=== PATIENT | female | born 1985 ===

== ENCOUNTER 2016-07-06 23:46 | Emergency (ER) | payer BC, MEDICAID ==
[2016-07-06 23:46] VITALS: BMI 23.3
[2016-07-06 23:55] VITALS: TEMP 98
[2016-07-07 00:43] LABS: BASO # 0.1 K/uL (0.0-0.2); BASO % 0.9 % (0.0-2.0); EOS # 0.6 K/uL (0.0-0.7); EOS % 6.8 % (0.0-4.0); LYMPH # 2.6 K/uL (1.0-4.3); LYMPH % 30.9 % (20.0-40.0); MEAN CELL VOLUME 96.4 fl (81.0-99.0); MEAN CORPUSCULAR HGB CONC 33.2 g/dL (33.0-37.0); MEAN PLATELET VOLUME 8.6 fl (7.2-11.7); MONO # 0.6 K/uL (0.0-0.8); MONO % 7.3 % (0.0-10.0); NEUT # 4.6 K/uL (1.8-7.0); NEUT % 54.1 % (50.0-75.0); WHITE BLOOD COUNT 8.5 K/uL (4.8-10.8)
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
[2016-07-07 00:53] LABS: ALCOHOL SERUM 155 mg/dl (0-10); BLOOD UREA NITROGEN 8 mg/dl (7-17); CALCIUM 8.9 mg/dL (8.4-10.2); CARBON DIOXIDE 23 mmol/L (22-30); CHLORIDE 106 mmol/L (98-107); GFR AFRICAN-AMERICAN > 60; GLUCOSE,RANDOM 98 mg/dL (65-105); POTASSIUM 3.6 MMOL/L (3.6-5.0); SODIUM 148 mmol/l (132-148)
[2016-07-07] MEDS ORDERED: Sodium Chloride 0.9% 1,000 ML IV STA ×3 (02:00→04:29)
[2016-07-07 05:30] VITALS: BP 120/62; PULSE 79; RESP 14
[2016-07-07 05:50] LABS: RBC URINE 1 /hpf (0-3); URINE BILIRUBIN NEGATIVE (NEGATIVE); URINE BLOOD NEGATIVE (NEGATIVE); URINE COLOR YELLOW (YELLOW); URINE GLUCOSE (UA) NEG (Normal); URINE KETONE NEGATIVE (NEGATIVE); URINE LEUKOCYTE ESTERASE NEG Leu/uL (Negative); URINE PROTEIN 30 mg/dL (NEGATIVE); URINE UROBILINOGEN 0.2-1.0 mg/dL (0.2-1.0); WBC URINE 3 /hpf (0-5)
[2016-07-07 06:17] VITALS: O2SAT 100
--- NOTE | 2016-07-07 11:23 | CARD ---
APPROVED REPORT EKG Measurement Heart [id number] <Conclusion> Normal sinus rhythm Normal ECG
== END 2016-07-07 06:36 | disposition home or self-care (01) ==
LOC: H.ER 23:46
DX: F10.129 Alcohol abuse with intoxication, unspecified (principal); N18.9 Chronic kidney disease, unspecified
CPT/HCPCS: 80048; 81003; 84702; 85025; 93005; 96360; 96361; 99285; G0480; J7040

== ENCOUNTER 2017-03-02 17:53 | Inpatient (IN) | payer BC ==
[2017-03-02 17:53] VITALS: BMI 23.3
[2017-03-02] MEDS ORDERED: Sodium Chloride 0.9% 1,000 ML IV STA (18:07)
[2017-03-02 18:54] LABS: BASO # 0.1 K/uL (0.0-0.2); BASO % 0.3 % (0.0-2.0); EOS # 0.1 K/uL (0.0-0.7); EOS % 0.5 % (0.0-4.0); LYMPH % 4.5 % (20.0-40.0); MEAN CELL VOLUME 97.7 fl (81.0-99.0); MEAN CORPUSCULAR HEMOGLOBIN 31.5 pg (27.0-31.0); MEAN CORPUSCULAR HGB CONC 32.3 g/dL (33.0-37.0); MEAN PLATELET VOLUME 8.1 fl (7.2-11.7); MONO # 3.4 K/uL (0.0-0.8); MONO % 14.7 % (0.0-10.0); NEUT # 18.4 K/uL (1.8-7.0); PLATELET COUNT 250 K/uL (130-400); RED CELL DISTRIBUTION WIDTH 13.5 % (11.5-14.5)
[2017-03-02 19:09] LABS: RBC URINE 35 /hpf (0-3); URINE BACTERIA OCC (<OCC); URINE BILIRUBIN NEGATIVE (NEGATIVE); URINE BLOOD MODERATE (NEGATIVE); URINE COLOR YELLOW (YELLOW); URINE GLUCOSE (UA) NEG (Normal); URINE KETONE TRACE mg/dL (NEGATIVE); URINE LEUKOCYTE ESTERASE LARGE Leu/uL (Negative); URINE PROTEIN 100 mg/dL (NEGATIVE); URINE UROBILINOGEN 0.2-1.0 mg/dL (0.2-1.0); WBC URINE 826 /hpf (0-5)
[2017-03-02 19:12] LABS: ALB/GLOB RATIO 1.4 (1.0-2.1); ALKALINE PHOSPHATASE 45 U/L (38-126); ALT/SGPT 28 U/L (9-52); AST/SGOT 22 U/L (14-36); BILIRUBIN,TOTAL 0.7 mg/dl (0.2-1.3); BLOOD UREA NITROGEN 8 mg/dl (7-17); CALCIUM 8.9 mg/dL (8.4-10.2); CARBON DIOXIDE 29 mmol/L (22-30); CHLORIDE 101 mmol/L (98-107); GFR AFRICAN-AMERICAN > 60; GLUCOSE,RANDOM 121 mg/dL (65-105); POTASSIUM 4.2 MMOL/L (3.6-5.0); SODIUM 138 mmol/l (132-148); TOTAL PROTEIN 7.7 G/DL (6.3-8.2)
--- NOTE | 2017-03-02 19:16 | ED PDOC ---
HPI: Back Time Seen by Provider: 03/02/17 17:58 Chief Complaint (Nursing): Back Pain Chief Complaint (Provider): Back pain History Per: Patient History/Exam Limitations: no limitations Onset/Duration Of Symptoms: Days (x3) Current Symptoms Are (Timing): Still Present Quality Of Discomfort: "Pain" Pain Scale Rating Of: 10 Previous Symptoms: Back Pain Additional Complaint(s): Madie Wilcox is a 31 year old female, with a past medical history of kidney stones and back problems, who was brought to the emergency department by EMS for severe left flank pain associated with hematuria onset for 3 days. Patient states the pain began intermittently but is now constant. Patient has had kidney stones in the past requiring lithotripsy and reports the pain feels similar. She is currently taking Oxycodone 30 mg for her back pain with no relief. She denies any nausea, vomit, or fever. No further medical complaints. PMD: Tommy Boo Past Medical History Reviewed: Historical Data, Nursing Documentation, Vital Signs Vital Signs: Last Vital Signs Temp 102.5 F H 03/02/17 17:55 Pulse 117 H 03/02/17 17:55 Resp 22 03/02/17 17:55 BP 114/58 L 03/02/17 17:55 Pulse Ox 97 03/02/17 17:55 - Medical History PMH: Anxiety, Asthma, Back Problems, Kidney Stones, Chronic Kidney Disease, Chronic Pain Denies: Diabetes, Hepatitis, HIV, HTN, Seizures, Sexually Transmitted Disease - Surgical History Surgical History: Cholecystectomy - Family History Family History: States: Unknown Family Hx, Hypertension - Social History Current smoker - smoking cessation education provided: No Alcohol: Social Drugs: Denies - Immunization History Hx Tetanus Toxoid Vaccination: No Hx Influenza Vaccination: No Hx Pneumococcal Vaccination: No - Home Medications Home Medications: Ambulatory Orders Medication Instructions Recorded oxyCODONE/Acetaminophen [Percocet 5 mg PO Q8 PRN 05/27/13 5/325 mg Tab] Alprazolam [Xanax] 2 mg PO Q8 PRN 02/07/16 Tizanidine HCl [Zanaflex Capsule] 4 mg PO Q8H 07/07/16 - Allergies Allergies/Adverse Reactions: Allergies Allergy/AdvReac Type Severity Reaction Status Date / Time No Known Allergies Allergy Verified 08/27/15 18:27 Review of Systems ROS Statement: Except As Marked, All Systems Reviewed And Found Negative Constitutional: Negative for: Fever Gastrointestinal: Negative for: Nausea, Vomiting Genitourinary Female: Positive for: Hematuria Musculoskeletal: Positive for: Back Pain (severe left flank) Physical Exam - Reviewed Nursing Documentation Reviewed: Yes Vital Signs Reviewed: Yes - Physical Exam Appears: Positive for: Well, Non-toxic, No Acute Distress Head Exam: Positive for: ATRAUMATIC, NORMAL INSPECTION, NORMOCEPHALIC Skin: Positive for: Normal Color, Warm, Dry Eye Exam: Positive for: EOMI, Normal appearance, PERRL Neck: Positive for: Normal, Painless ROM, Supple Respiratory: Negative for: Respiratory Distress Gastrointestinal/Abdominal: Negative for: Normal Exam (left lower abdominal pain ) Back: Positive for: L CVA Tenderness Extremity: Positive for: Normal ROM Neurologic/Psych: Positive for: Alert, Oriented - Laboratory Results Result Diagrams: 03/02/17 18:49 03/02/17 18:49 - ECG O2 Sat by Pulse Oximetry: 97 (RA) Pulse Ox Interpretation: Normal Medical Decision Making Medical Decision Making: Initial Impression: pyelo vs. nephrolothiasis and hydronephrosis Initial Plan: --Abdomen & Pelvis w/o PO or IV Cont [CT] --Comp Metabolic Panel --Urine --CBC w/ differential ---VBG shock pannel --Toradol 30 mg IVP and 650 mg tab Acetaminophen PO for fever 102.5 F noted in triage --NS IV 1,000 ml @ 125 mls/hr --Urinalysis --reevaluation UA resulted (+) Leuks, nites and blood >800 WBC Lactate:0.9 Blood cultures obtained and sent WBC 23, Rocephin IV started CT: 1. Hyperdensity seen in bilateral medullary pyramids, correlate for dehydration versus changes of early medullary nephrocalcinosis. 2. 3 mm calculus in the left kidney. Punctate right nephrolithiasis. No significant bilateral hydronephrosis. Extrarenal pelvis is seen the left. 3. Moderate amount of free fluid in the pelvis. The remainder of the findings are as described above. Case discussed with ED MD, Dr. Morel. Admission advised at this time. Dr. Connors is Pt's PMD. Dr. Menjivar contacted and arrangements made for admission ~ Scribe Attestation: Documented by Prem Conn, acting as a scribe for Mahogany Danielle PA-C. Provider Scribe Attestation: All medical record entries made by the Scribe were at my direction and personally dictated by me. I have reviewed the chart and agree that the record accurately reflects my personal performance of the history, physical exam, medical decision making, and the department course for this patient. I have also personally directed, reviewed, and agree with the discharge instructions and disposition. Disposition - Clinical Impression Clinical Impression: Pyelonephritis - Patient ED Disposition Is Patient to be Admitted: Yes - Disposition Disposition Time: 20:27 Condition: STABLE - POA Present On Arrival: None
[2017-03-02] MEDS ORDERED: cefTRIAXone IV 1 gm in Dextros 50 ML IVPB STA ×2 (19:32→20:25)
[2017-03-02] MEDS ORDERED: cefTRIAXone IV 1 gm in Dextros 50 ML IVPB ONE ×2 (19:39→20:27)
[2017-03-02 20:05] LABS: LARGE PLATELETS PRESENT; NEUTROPHIL 78 % (42-75); TOTAL CELLS COUNTED 100
[2017-03-02 20:05] LABS: VENOUS BLOOD GAS BASE EXCESS 2.8 mmol/L (0.0-2.0); VENOUS BLOOD GAS PCO2 40 mmHg (40-60); VENOUS BLOOD PH 7.44 (7.32-7.43)
[2017-03-03] MEDS: Sodium Chloride 0.9% 1,000 ML IV SCH ×3 (07:15→21:47)
[2017-03-03 07:39] LABS: BASO # 0.1 K/uL (0.0-0.2); BASO % 0.3 % (0.0-2.0); EOS % 0.2 % (0.0-4.0); HEMATOCRIT 39.4 % (34.0-47.0); LYMPH # 0.9 K/uL (1.0-4.3); LYMPH % 3.8 % (20.0-40.0); MEAN CELL VOLUME 97.4 fl (81.0-99.0); MEAN CORPUSCULAR HEMOGLOBIN 32.1 pg (27.0-31.0); MEAN CORPUSCULAR HGB CONC 32.9 g/dL (33.0-37.0); MEAN PLATELET VOLUME 8.6 fl (7.2-11.7); MONO # 3.7 K/uL (0.0-0.8); MONO % 14.9 % (0.0-10.0); NEUT # 19.9 K/uL (1.8-7.0); NEUT % 80.8 % (50.0-75.0); RED CELL DISTRIBUTION WIDTH 13.4 % (11.5-14.5); WHITE BLOOD COUNT 24.6 K/uL (4.8-10.8)
--- NOTE | 2017-03-03 09:14 | CT ---
PROCEDURE: CT Abdomen and Pelvis without intravenous contrast HISTORY: left renal colic COMPARISON: 08/28/2015. TECHNIQUE: Technique. Contrast Dose: Radiation dose: Total exam DLP = mGy-cm. This CT exam was performed using one or more of the following dose reduction techniques: Automated exposure control, adjustment of the mA and/or kV according to patient size, and/or use of iterative reconstruction technique. FINDINGS: LOWER THORAX: Unremarkable. LIVER: Unremarkable. No gross lesion or ductal dilatation. GALLBLADDER AND BILE DUCTS: Unremarkable. PANCREAS: Unremarkable. No gross lesion or ductal dilatation. SPLEEN: Unremarkable. ADRENALS: Unremarkable. No mass. KIDNEYS AND URETERS: Minimal bilateral medullary calcinosis. Punctate 2 millimeter nonobstructive calculus in the upper pole left kidney. Dilated left extrarenal pelvis. No obstructive renal calculus. No hydronephrosis. No solid mass. VASCULATURE: Unremarkable. No aortic aneurysm. BOWEL: Unremarkable. No obstruction. No gross mural thickening. APPENDIX: Unremarkable. Normal appendix. PERITONEUM: Unremarkable. No free fluid. No free air. LYMPH NODES: Unremarkable. No enlarged lymph nodes. BLADDER: Unremarkable. REPRODUCTIVE: Unremarkable. BONES: No acute fracture. OTHER FINDINGS: Small amount of free fluid in the pelvis. IMPRESSION: Minimal bilateral medullary calcinosis. Punctate 2 millimeter nonobstructive calculus in the upper pole left kidney. Dilated left extrarenal pelvis, unchanged from prior exam. No obstructive renal calculus.
[2017-03-03 09:21] LABS: ALB/GLOB RATIO 1.2 (1.0-2.1); ALKALINE PHOSPHATASE 44 U/L (38-126); ALT/SGPT 27 U/L (9-52); AST/SGOT 19 U/L (14-36); BILIRUBIN,TOTAL 0.5 mg/dl (0.2-1.3); BLOOD UREA NITROGEN 9 mg/dl (7-17); CALCIUM 8.1 mg/dL (8.4-10.2); CARBON DIOXIDE 26 mmol/L (22-30); CHLORIDE 105 mmol/L (98-107); CHOLESTEROL 148 mg/dL (0-199); GFR AFRICAN-AMERICAN > 60; GLUCOSE,RANDOM 124 mg/dL (65-105); POTASSIUM 3.6 MMOL/L (3.6-5.0); SODIUM 138 mmol/l (132-148); TOTAL PROTEIN 6.5 G/DL (6.3-8.2)
[2017-03-03] MEDS: Enoxaparin 40 mg Syringe SC SCH (09:22)
[2017-03-03] MEDS: cefTRIAXone 2 GM in Sodium Chloride 0.9% 100 ML IVPB SCH (09:23)
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
[2017-03-04] MEDS: Sodium Chloride 0.9% 1,000 ML IV SCH (00:25)
[2017-03-04 08:42] LABS: HEMATOCRIT 35.6 % (34.0-47.0); MEAN CELL VOLUME 96.5 fl (81.0-99.0); MEAN CORPUSCULAR HEMOGLOBIN 32.2 pg (27.0-31.0); MEAN CORPUSCULAR HGB CONC 33.3 g/dL (33.0-37.0); RED CELL DISTRIBUTION WIDTH 13.4 % (11.5-14.5); WHITE BLOOD COUNT 17.2 K/uL (4.8-10.8)
[2017-03-04 09:13] LABS: ALB/GLOB RATIO 1.1 (1.0-2.1); ALKALINE PHOSPHATASE 49 U/L (38-126); ALT/SGPT 30 U/L (9-52); AST/SGOT 16 U/L (14-36); BILIRUBIN,TOTAL 0.3 mg/dl (0.2-1.3); BLOOD UREA NITROGEN 3 mg/dl (7-17); CARBON DIOXIDE 25 mmol/L (22-30); CHLORIDE 108 mmol/L (98-107); GFR AFRICAN-AMERICAN > 60; GLUCOSE,RANDOM 104 mg/dL (65-105); POTASSIUM 3.6 MMOL/L (3.6-5.0); SODIUM 139 mmol/l (132-148); TOTAL PROTEIN 6.2 G/DL (6.3-8.2)
[2017-03-04] MEDS: Enoxaparin 40 mg Syringe SC SCH (09:22)
[2017-03-04] MEDS: cefTRIAXone 2 GM in Sodium Chloride 0.9% 100 ML IVPB SCH (09:22)
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
[2017-03-04] MEDS: Morphine 30 mg SR Tab PO SCH (20:49)
[2017-03-05] MEDS: Morphine 30 mg SR Tab PO SCH ×2 (08:55→21:28)
[2017-03-05] MEDS: Enoxaparin 40 mg Syringe SC SCH (08:57)
[2017-03-05] MEDS: cefTRIAXone 2 GM in Sodium Chloride 0.9% 100 ML IVPB SCH (09:28)
--- NOTE | 2017-03-05 10:48 | CP.PCM.PN ---
Subjective - Date & Time of Evaluation Date of Evaluation: 03/05/17 Time of Evaluation: 10:46 - Subjective Subjective: urology consult on chart. Cont iv antibiotics and add an NSAID for sympton relief Objective - Vital Signs/Intake and Output Vital Signs (last 24 hours): Temp Pulse Resp BP Pulse Ox 97.8 F 71 20 106/67 98 03/05/17 08:12 03/05/17 08:12 03/05/17 08:12 03/05/17 08:12 03/05/17 08:12 - Medications Medications: Current Medications Acetaminophen (Tylenol 325mg Tab) 650 mg PO Q6 PRN PRN Reason: Fever >100.4 F Last Admin: 03/03/17 15:28 Dose: 650 mg Alprazolam (Xanax) 1 mg PO Q8 PRN PRN Reason: Anxiety Last Admin: 03/05/17 08:13 Dose: 1 mg Enoxaparin Sodium (Lovenox) 40 mg SC DAILY CHANTEL PRN Reason: Protocol Last Admin: 03/05/17 08:57 Dose: 40 mg Hydromorphone HCl (Dilaudid) 2 mg IVP Q3 PRN PRN Reason: Pain, severe (8-10) Last Admin: 03/05/17 09:41 Dose: 2 mg Ceftriaxone Sodium 2 gm/ (Sodium Chloride) 100 mls @ 100 mls/hr IVPB DAILY CHANTEL PRN Reason: Protocol Last Admin: 03/05/17 09:28 Dose: 100 mls/hr Ketorolac Tromethamine (Toradol) 30 mg IVP Q6 PRN PRN Reason: Pain, moderate (4-7) Last Admin: 03/05/17 05:31 Dose: 30 mg Morphine Sulfate (Morphine Extended Release Tab) 30 mg PO Q12 CHANTEL Last Admin: 03/05/17 08:55 Dose: 30 mg Ondansetron HCl (Zofran Inj) 4 mg IVP Q6 PRN PRN Reason: Nausea/Vomiting Last Admin: 03/04/17 17:06 Dose: 4 mg - Labs Labs: 03/04/17 05:45 03/04/17 05:45
--- NOTE | 2017-03-05 12:08 | PN ---
DATE: 03/04/2017 The patient was seen and examined yesterday. At that time, a note was not dictated. SUBJECTIVE: The patient was seen and examined. Interim events noted. The patient feels okay. Denies any specific complaint. No chest pain. No shortness of breath. Joint pain is still present, but improving. Urinary symptoms are also resolving. PHYSICAL EXAMINATION: GENERAL: The patient is in no acute distress. VITAL SIGNS: Stable. HEART: S1 and S2, normal and regular. LUNGS: Good bilateral air exchange. ABDOMEN: Soft, nontender. CVA tenderness is still present, but has been less. No sign of acute abdomen. No guarding. No rigidity. No rebound. Bowel sounds are plus and normal. EXTREMITIES: No edema. No calf swelling. No tenderness. No acute ischemia. CENTRAL NERVOUS SYSTEM: Essentially unchanged. DIAGNOSTIC DATA: Available diagnostic data reviewed. ASSESSMENT AND PLAN: Overall, the patient's general medical condition is stable and improving. Plan as ordered. Lele Menjivar MD
[2017-03-05] MEDS: Sodium Chloride 0.9% 1,000 ML IV SCH ×2 (13:30→23:32)
--- NOTE | 2017-03-05 13:41 | PN ---
DATE: 03/05/2017 SUBJECTIVE: The patient is seen and examined. Interim events noted. Consults noted and appreciated. Pain Management intervention noted and appreciated. The patient remains in regular medical floor. Complains of pain of chronic nature this is improving. Still has burning urination and some blood in the urine. No chest pain. No shortness of breath. PHYSICAL EXAMINATION: GENERAL: The patient is in no acute distress. VITAL SIGNS: Stable. HEART: S1 and S2, normal and regular. LUNGS: Good bilateral air entry. ABDOMEN: Soft, nontender. No costovertebral tenderness. No sign of acute abdomen. No guarding. No rigidity. No rebound. Bowel sounds are present and normal. EXTREMITIES: No edema. No calf swelling. No tenderness. No acute ischemia. CENTRAL NERVOUS SYSTEM: Essentially unchanged. DIAGNOSTIC DATA: Available diagnostic data reviewed. ASSESSMENT AND PLAN: Overall, the patient's general medical condition is slowly improving. Still has hematuria and urinary tract infection symptoms. Plan as ordered. Lele Menjivar MD
--- NOTE | 2017-03-06 00:59 | CON ---
DATE OF CONSULTATION: 03/05/2017 HISTORY OF PRESENT ILLNESS: This is a 31-year-old female, who I was called to evaluate because of the present diagnosis of acute pyelonephritis. This patient has a significant history of having had renal calculus disease in the past. Once in passage of a stone, she developed pyelonephritis, needed to be hospitalized for a week with IV antibiotics. The patient recently has been fine, but at this time, she developed flank pain mostly on the left side, dysuria, came through the emergency room, white count was above 25, 000, urine was positive for nitrites and leukocytes. Patient had a urine culture done upon admission that was reported back as significant growth of E. coli. She was placed on Zosyn initially. When she was seen this morning, the patient still has some residual flank pain, mostly geared towards the left and the white count is now 17,000 as of this morning. The patient had a CT scan done upon admission where there was noted to be a mildly dilated extrarenal pelvis on the left side with a 2-mm non-obstructing stone noted in the upper pole of the kidney on that same side; the right side was unremarkable. PHYSICAL EXAMINATION: The patient has some abdominal tenderness in the left and right upper quadrants as well as flank pain on both sides. The lower abdomen is fine. ASSESSMENT AND PLAN: We told the patient that urologically, there is no need for intervention at this time. She could benefit from oral nonsteroidal antiinflammatory drugs to help with the discomfort created by the pyelonephritis and other than that, once she is well controlled and the white count normalizes, then she should be transitioned to a p.o. antibiotic for 10 days to 2 weeks to ensure no recurrence of disease. Trent Maya MD
[2017-03-06 01:49] LABS: RBC URINE 4 /hpf (0-3); URINE BACTERIA OCC (<OCC); URINE BILIRUBIN NEGATIVE (NEGATIVE); URINE COLOR YELLOW (YELLOW); URINE GLUCOSE (UA) NEG (Normal); URINE KETONE 20 mg/dL (NEGATIVE); URINE PROTEIN NEGATIVE (NEGATIVE); URINE UROBILINOGEN 0.2-1.0 mg/dL (0.2-1.0); WBC URINE 13 /hpf (0-5)
[2017-03-06 01:53] LABS: URINE BLOOD SMALL (NEGATIVE); URINE LEUKOCYTE ESTERASE SMALL Leu/uL (Negative)
[2017-03-06] MEDS: Sodium Chloride 0.9% 1,000 ML IV SCH ×2 (03:44→11:42)
[2017-03-06 06:22] LABS: HEMATOCRIT 33.4 % (34.0-47.0); MEAN CELL VOLUME 95.8 fl (81.0-99.0); MEAN CORPUSCULAR HEMOGLOBIN 32.9 pg (27.0-31.0); MEAN CORPUSCULAR HGB CONC 34.3 g/dL (33.0-37.0); RED CELL DISTRIBUTION WIDTH 13.1 % (11.5-14.5); WHITE BLOOD COUNT 9.5 K/uL (4.8-10.8)
[2017-03-06 06:39] LABS: ALKALINE PHOSPHATASE 67 U/L (38-126); ALT/SGPT 54 U/L (9-52); AST/SGOT 48 U/L (14-36); BILIRUBIN,TOTAL 0.2 mg/dl (0.2-1.3); BLOOD UREA NITROGEN 3 mg/dl (7-17); CALCIUM 7.8 mg/dL (8.4-10.2); CARBON DIOXIDE 27 mmol/L (22-30); CHLORIDE 106 mmol/L (98-107); GFR AFRICAN-AMERICAN > 60; GLUCOSE,RANDOM 98 mg/dL (65-105); POTASSIUM 3.3 MMOL/L (3.6-5.0); SODIUM 139 mmol/l (132-148); TOTAL PROTEIN 5.9 G/DL (6.3-8.2)
[2017-03-06] MEDS: Enoxaparin 40 mg Syringe SC SCH (09:11)
[2017-03-06] MEDS: cefTRIAXone 2 GM in Sodium Chloride 0.9% 100 ML IVPB SCH (09:16)
[2017-03-06] MEDS: Morphine 30 mg SR Tab PO SCH ×2 (09:18→21:05)
[2017-03-06] MEDS ORDERED: Potassium Chloride 20 mEq ER Tab PO ONE (11:51)
--- NOTE | 2017-03-06 13:41 | CP.PCM.PN ---
Subjective - Date & Time of Evaluation Date of Evaluation: 03/06/17 Time of Evaluation: 13:22 - Subjective Subjective: Patient seen and examined with Dr. Menjivar Patient reports worsening abdominal pain and dysuria today. It is possible stone is passing. Chronic pain managed with PO medications, currently on dilaudid 2mg q3. patient requesting more pain medication to be able to ambulate. Will start toradol scheduled q6 hrs to improve pain control. IF not controlled can call pain management to reassess her pain regimen. Patient appears uncomfortable but pleasant. Speech is clear. No appetite, food tray seen. Food untouched. Continue with IVF . Objective - Vital Signs/Intake and Output Vital Signs (last 24 hours): Temp Pulse Resp BP Pulse Ox 98 F 86 20 100/66 99 03/06/17 08:00 03/06/17 08:00 03/06/17 08:00 03/06/17 08:00 03/06/17 08:00 - Medications Medications: Current Medications Acetaminophen (Tylenol 325mg Tab) 650 mg PO Q6 PRN PRN Reason: Fever >100.4 F Last Admin: 03/03/17 15:28 Dose: 650 mg Alprazolam (Xanax) 1 mg PO Q8 PRN PRN Reason: Anxiety Last Admin: 03/06/17 04:40 Dose: 1 mg Docusate Sodium (Colace) 100 mg PO BID [facility] Last Admin: 03/06/17 09:10 Dose: 100 mg Hydromorphone HCl (Dilaudid) 2 mg IVP Q3 PRN PRN Reason: Pain, severe (8-10) Last Admin: 03/06/17 13:07 Dose: 2 mg Ceftriaxone Sodium 2 gm/ (Sodium Chloride) 100 mls @ 100 mls/hr IVPB DAILY [facility] PRN Reason: Protocol Last Admin: 03/06/17 09:16 Dose: 100 mls/hr Ketorolac Tromethamine (Toradol) 15 mg IVP Q6 [facility] Morphine Sulfate (Morphine Extended Release Tab) 30 mg PO Q12 [facility] Last Admin: 03/06/17 09:18 Dose: 30 mg Ondansetron HCl (Zofran Inj) 4 mg IVP Q6 PRN PRN Reason: Nausea/Vomiting Last Admin: 03/05/17 23:38 Dose: 4 mg Pantoprazole Sodium (Protonix Ec Tab) 40 mg PO DAILY [facility] Phenazopyridine HCl (Pyridium) 100 mg PO TID [facility] Last Admin: 03/06/17 13:05 Dose: 100 mg - Labs Labs: 03/06/17 05:30 03/06/17 05:30 - Constitutional Appears: Non-toxic (appears uncomfortable) - Head Exam Head Exam: ATRAUMATIC, NORMAL INSPECTION, NORMOCEPHALIC - Eye Exam Eye Exam: EOMI, Normal appearance, PERRL - ENT Exam ENT Exam: Mucous Membranes Moist - Neck Exam Neck Exam: Full ROM - Respiratory Exam Respiratory Exam: NORMAL BREATHING PATTERN - Cardiovascular Exam Cardiovascular Exam: REGULAR RHYTHM, +S1, +S2 - GI/Abdominal Exam GI & Abdominal Exam: Soft, Tenderness (left sided ). absent: Distended - Rectal Exam Rectal Exam: Deferred - Neurological Exam Neurological Exam: Alert, Awake, CN II-XII Intact, Normal Gait, Oriented x3 - Psychiatric Exam Psychiatric exam: Normal Affect, Normal Mood - Skin Skin Exam: Dry, Intact, Normal Color, Warm Assessment and Plan (1) Pyelonephritis Assessment & Plan: 31 year old female admitted for pyelonephritis, hx of chronic pain. Leukocytosis has resolved. Urine Culture + E. Coli, sensitive to Rocephin. Continue with IV antibiotics and IVF, LR at 150cc/hr Patient has no appetite. Stone may be passing contributing to patients increased pain Toradol scheduled for improved pain control. reconsult pain management if no improvement. DVT PPX SCDs lovenox in am case d/w Dr. Menjivar Status: Acute (2) Chronic pain Status: Chronic
[2017-03-06] MEDS ORDERED: Lactated Ringer's 1,000 ML IV SCH (14:15)
[2017-03-06] MEDS: Lactated Ringer's 1,000 ML IV SCH ×2 (15:02→21:55)
[2017-03-07 00:55] VITALS: RESP 20
[2017-03-07] MEDS: Lactated Ringer's 1,000 ML IV SCH (04:12)
[2017-03-07 06:50] LABS: HEMATOCRIT 32.9 % (34.0-47.0); MEAN CELL VOLUME 95.9 fl (81.0-99.0); MEAN CORPUSCULAR HGB CONC 34.4 g/dL (33.0-37.0); RED CELL DISTRIBUTION WIDTH 12.9 % (11.5-14.5); WHITE BLOOD COUNT 7.5 K/uL (4.8-10.8)
[2017-03-07 07:27] LABS: BLOOD UREA NITROGEN 5 mg/dl (7-17); CARBON DIOXIDE 28 mmol/L (22-30); CHLORIDE 106 mmol/L (98-107); GFR AFRICAN-AMERICAN > 60; GLUCOSE,RANDOM 95 mg/dL (65-105); POTASSIUM 3.4 MMOL/L (3.6-5.0); SODIUM 140 mmol/l (132-148)
--- NOTE | 2017-03-07 08:09 | CP.PCM.DIS ---
Provider - Provider Date of Admission: 03/02/17 20:05 Attending physician: Lele Menjivar MD Consults: Urology: Zachary Anesthesiology: Dr. Michel Time Spent in preparation of Discharge (in minutes): 35 Diagnosis - Discharge Diagnosis (1) Pyelonephritis Status: Acute Comment: pain controlled. treated with IV rocephin. d.c on cipro for 10 days (2) Chronic pain Status: Chronic Comment: resume home pain regimen. follow up with outpatient pain management; Dr. Srinivasan [facility] Course - Lab Results Lab Results: Micro Results 03/02/17 20:00 Blood-Venous Blood Culture - Preliminary NO GROWTH AFTER 4 DAYS 03/02/17 19:45 Blood-Venous Blood Culture - Preliminary NO GROWTH AFTER 4 DAYS 03/02/17 20:55 Urine,Clean Catch Urine Culture - Final Escherichia Coli Most Recent Lab Values WBC 7.5 K/uL (4.8-10.8) 03/07/17 05:15 RBC 3.43 Mil/uL (3.80-5.20) L 03/07/17 05:15 Hgb 11.3 g/dL (12.0-16.0) L 03/07/17 05:15 Hct 32.9 % (34.0-47.0) L 03/07/17 05:15 MCV 95.9 fl (81.0-99.0) 03/07/17 05:15 MCH 33.0 pg (27.0-31.0) H 03/07/17 05:15 MCHC 34.4 g/dL (33.0-37.0) 03/07/17 05:15 RDW 12.9 % (11.5-14.5) 03/07/17 05:15 Plt Count 255 K/uL (130-400) 03/07/17 05:15 MPV 8.6 fl (7.2-11.7) 03/03/17 05:30 Neut % (Auto) 80.8 % (50.0-75.0) H 03/03/17 05:30 Lymph % (Auto) 3.8 % (20.0-40.0) L 03/03/17 05:30 Cross % (Auto) 14.9 % (0.0-10.0) H 03/03/17 05:30 Eos % (Auto) 0.2 % (0.0-4.0) 03/03/17 05:30 Baso % (Auto) 0.3 % (0.0-2.0) 03/03/17 05:30 Neut # 19.9 K/uL (1.8-7.0) H 03/03/17 05:30 Lymph # 0.9 K/uL (1.0-4.3) L 03/03/17 05:30 Cross # 3.7 K/uL (0.0-0.8) H 03/03/17 05:30 Eos # 0.0 K/uL (0.0-0.7) 03/03/17 05:30 Baso # 0.1 K/uL (0.0-0.2) 03/03/17 05:30 Neutrophils % (Manual) 78 % (42-75) H 03/02/17 18:49 Band Neutrophils % 1 % (0-2) 03/02/17 18:49 Lymphocytes % (Manual) 7 % (20-50) L 03/02/17 18:49 Monocytes % (Manual) 14 % (0-10) H 03/02/17 18:49 Platelet Estimate Normal (NORMAL) 03/02/17 18:49 Large Platelets Present 03/02/17 18:49 pO2 34 mm/Hg (30-55) 03/02/17 19:57 VBG pH 7.44 (7.32-7.43) H 03/02/17 19:57 VBG pCO2 40 mmHg (40-60) 03/02/17 19:57 VBG HCO3 26.3 mmol/L 03/02/17 19:57 VBG Total CO2 28.4 mmol/L (22-28) H 03/02/17 19:57 VBG O2 Sat (Calc) 74.8 % (40-65) H 03/02/17 19:57 VBG Base Excess 2.8 mmol/L (0.0-2.0) H 03/02/17 19:57 VBG Potassium 3.8 mmol/L (3.6-5.2) 03/02/17 19:57 Sodium 136.0 mmol/L (132-148) 03/02/17 19:57 Chloride 103.0 mmol/L (98-107) 03/02/17 19:57 Glucose 121 mg/dL (65-105) H 03/02/17 19:57 Lactate 0.9 mmol/L (0.7-2.1) 03/02/17 19:57 FiO2 21.0 % 03/02/17 19:57 Sodium 140 mmol/l (132-148) 03/07/17 05:15 Potassium 3.4 MMOL/L (3.6-5.0) L 03/07/17 05:15 Chloride 106 mmol/L (98-107) 03/07/17 05:15 Carbon Dioxide 28 mmol/L (22-30) 03/07/17 05:15 Anion Gap 9 (10-20) L 03/07/17 05:15 BUN 5 mg/dl (7-17) L 03/07/17 05:15 Creatinine 0.5 mg/dl (0.7-1.2) L 03/07/17 05:15 Est GFR ( Amer) > 60 03/07/17 05:15 Est GFR (Non-Af Amer) > 60 03/07/17 05:15 Random Glucose 95 mg/dL (65-105) 03/07/17 05:15 Calcium 8.0 mg/dL (8.4-10.2) L 03/07/17 05:15 Total Bilirubin 0.2 mg/dl (0.2-1.3) 03/06/17 05:30 AST 48 U/L (14-36) H D 03/06/17 05:30 ALT 54 U/L (9-52) H D 03/06/17 05:30 Alkaline Phosphatase 67 U/L (38-126) 03/06/17 05:30 Total Protein 5.9 G/DL (6.3-8.2) L 03/06/17 05:30 Albumin 3.0 g/dL (3.5-5.0) L 03/06/17 05:30 Globulin 2.9 gm/dL (2.2-3.9) 03/06/17 05:30 Albumin/Globulin Ratio 1.0 (1.0-2.1) 03/06/17 05:30 Triglycerides 73 mg/DL (0-149) 03/03/17 05:30 Cholesterol 148 mg/dL (0-199) 03/03/17 05:30 LDL Cholesterol Direct 60 mg/dL (0-129) 03/03/17 05:30 HDL Cholesterol 54 MG/DL (30-70) 03/03/17 05:30 Vitamin B12 430 pg/mL (239-931) 03/03/17 05:30 Venous Blood Potassium 3.8 mmol/L (3.6-5.2) 03/02/17 19:57 Urine Color Yellow (YELLOW) 03/06/17 01:38 Urine Clarity Slighty-cloudy (Clear) 03/06/17 01:38 Urine pH 6.0 (5.0-8.0) 03/06/17 01:38 Ur Specific [employer] 1.013 (1.003-1.030) 03/06/17 01:38 Urine Protein Negative mg/dL (NEGATIVE) 03/06/17 01:38 Urine Glucose (UA) Neg mg/dL (Normal) 03/06/17 01:38 Urine Ketones 20 mg/dL (NEGATIVE) 03/06/17 01:38 Urine Blood Small (NEGATIVE) 03/06/17 01:38 Urine Nitrate Negative (NEGATIVE) 03/06/17 01:38 Urine Bilirubin Negative (NEGATIVE) 03/06/17 01:38 Urine Urobilinogen 0.2-1.0 mg/dL (0.2-1.0) 03/06/17 01:38 Ur Leukocyte Esterase Small Jimmy/uL (Negative) 03/06/17 01:38 Urine RBC (Auto) 4 /hpf (0-3) H 03/06/17 01:38 Urine Microscopic WBC 13 /hpf (0-5) H 03/06/17 01:38 Ur Squamous Epith Cells 1 /hpf (0-5) 03/06/17 01:38 Amorphous Sediment Occ /ul (<OCC) H 03/02/17 18:49 Urine Bacteria Occ (<OCC) H 03/06/17 01:38 Urine Opiates Screen Positive (NEGATIVE) H 03/03/17 07:45 Urine Methadone Screen Negative (NEGATIVE) 03/03/17 07:45 Ur Barbiturates Screen Negative (NEGATIVE) 03/03/17 07:45 Ur Phencyclidine Scrn Negative (NEGATIVE) 03/03/17 07:45 Ur Amphetamines Screen Negative (NEGATIVE) 03/03/17 07:45 U Benzodiazepines Scrn Positive (NEGATIVE) 03/03/17 07:45 U Oth Cocaine Metabols Negative (NEGATIVE) 03/03/17 07:45 U Cannabinoids Screen Negative (NEGATIVE) 03/03/17 07:45 - Hospital Course Hospital Course: 31 year old female admitted for pyelonephritis. Treated with IV rocephin. Cultures positive for e.coli. Will d/c on 10 days of PO ciprofloxacin. Chronic pain managed by Dr. Srinivasan. Can resume ms contin and roxicodone. She can take Ibuprofen PRN in addition to this. - Date & Time of H&P Date of H&P: 03/03/17 Time of H&P: 07:46 Discharge Exam - Head Exam Head Exam: ATRAUMATIC, NORMAL INSPECTION, NORMOCEPHALIC - Eye Exam Eye Exam: EOMI, Normal appearance, PERRL - Respiratory Exam Respiratory Exam: Clear to PA & Lateral, NORMAL BREATHING PATTERN, UNREMARKABLE - Cardiovascular Exam Cardiovascular Exam: REGULAR RHYTHM, +S1, +S2. absent: Bradycardia, Tachycardia - GI/Abdominal Exam GI & Abdominal Exam: Soft. absent: Distended, Tenderness - Neurological Exam Neurological exam: Alert, CN II-XII Intact, Normal Gait, Oriented x3, Reflexes Normal - Psychiatric Exam Psychiatric exam: Normal Affect, Normal Mood - Skin Skin Exam: Dry, Intact, Normal Color, Warm Discharge Plan - Discharge Medications Prescriptions: Ciprofloxacin [Cipro] 500 mg PO BID #20 tab - Follow Up Plan Condition: STABLE Disposition: HOME/ ROUTINE Instructions: Acute Pyelonephritis (DC) Additional Instructions: Complete all antibiotics. Follow up with primary MD in 1 week Referrals: Lele Menjivar MD [Staff Provider] - Lux Sharma Jr., MD [Staff Provider] - Darion Michel MD [Staff Provider] -
[2017-03-07] MEDS ORDERED: Enoxaparin 40 mg Syringe SC SCH (09:00)
[2017-03-07] MEDS ORDERED: Potassium Chloride 20 mEq ER Tab PO ONE (09:00)
[2017-03-07] MEDS ORDERED: Pantoprazole 40 mg EC Tab PO SCH (09:00)
[2017-03-07] MEDS: Morphine 30 mg SR Tab PO SCH (09:04)
[2017-03-07] MEDS: cefTRIAXone 2 GM in Sodium Chloride 0.9% 100 ML IVPB SCH (09:07)
[2017-03-07 09:08] VITALS: BP 128/82; PULSE 67; TEMP 97.3; O2SAT 96
== END 2017-03-07 13:00 | disposition home or self-care (01) | DRG 690 ==
LOC: H.ER 17:53 → H.ERHOLD 20:05 → H.MEDSURG1 21:02
PROVIDERS: ADMIT Internal Medicine; ATTEND Internal Medicine
DX: N10 Acute pyelonephritis (principal); B96.20 Unspecified Escherichia coli [E. coli] as the cause of diseases classified elsewhere; G89.29 Other chronic pain; J45.909 Unspecified asthma, uncomplicated; Z87.442 Personal history of urinary calculi; Z90.49 Acquired absence of other specified parts of digestive tract; Z80.3 Family history of malignant neoplasm of breast; Z82.49 Family history of ischemic heart disease and other diseases of the circulatory system

== ENCOUNTER 2017-08-14 13:21 | Inpatient (IN) | payer BC ==
[2017-08-14 13:21] VITALS: BMI 23.3
[2017-08-14 15:04] LABS: BASO # 0.1 K/uL (0.0-0.2); BASO % 0.5 % (0.0-2.0); EOS # 0.1 K/uL (0.0-0.7); EOS % 1.1 % (0.0-4.0); HEMOGLOBIN 13.7 g/dL (12.0-16.0); LYMPH # 1.7 K/uL (1.0-4.3); LYMPH % 13.5 % (20.0-40.0); MEAN CELL VOLUME 93.9 fl (81.0-99.0); MEAN CORPUSCULAR HEMOGLOBIN 32.2 pg (27.0-31.0); MEAN CORPUSCULAR HGB CONC 34.3 g/dL (33.0-37.0); MEAN PLATELET VOLUME 8.8 fl (7.2-11.7); MONO # 1.5 K/uL (0.0-0.8); NEUT # 9.1 K/uL (1.8-7.0); NEUT % 72.9 % (50.0-75.0); NRBC % 0.1 % (0.0-0.0); RBC 4.23 Mil/uL (3.80-5.20); RED CELL DISTRIBUTION WIDTH 13.7 % (11.5-14.5); WHITE BLOOD COUNT 12.5 K/uL (4.8-10.8)
[2017-08-14 15:11] LABS: VENOUS BLOOD GAS BASE EXCESS 3.1 mmol/L (0.0-2.0); VENOUS BLOOD GAS PCO2 38 mmHg (40-60); VENOUS BLOOD GAS PO2 50 mm/Hg (30-55); VENOUS BLOOD PH 7.46 (7.32-7.43)
[2017-08-14 15:14] LABS: BLOOD UREA NITROGEN 8 mg/dl (7-17); GFR AFRICAN-AMERICAN > 60; GFR NON-AFRICAN AMERICAN > 60
--- NOTE | 2017-08-14 15:58 | ED PDOC ---
Upper Extremity Pain/Injury Time Seen by Provider: 08/14/17 13:49 Chief Complaint (Nursing): Headache Chief Complaint (Provider): Headache, Bilat arm redness History Per: Patient History/Exam Limitations: no limitations Onset/Duration Of Symptoms: Days (x4) Current Symptoms Are (Timing): Still Present Additional Complaint(s): 31 year old female, with a history of chronic neck and back pain, presents to the emergency department complaining of fever, body aches, chills, headache, and bilateral arm pain / redness / swelling in her cubital area, onset four days ago. Also, the patient noted left hand swelling. She states that her symptoms came one at a time and subsided but came back. Denies chest pain, vomiting, and diarrhea. As for her chronic neck and back pain, she reports taking morphine and percocet. PMD: Tommy Boo Past Medical History Reviewed: Historical Data, Nursing Documentation, Vital Signs Vital Signs: Last Vital Signs Temp 99 F 08/14/17 13:33 Pulse 111 H 08/14/17 13:33 Resp 18 08/14/17 13:33 BP 111/77 08/14/17 13:33 Pulse Ox 100 08/14/17 13:33 - Medical History PMH: Anxiety, Asthma, Back Problems, Kidney Stones, Chronic Kidney Disease ( kidney stones), Chronic Pain Denies: Diabetes, Hepatitis, HIV, HTN, Seizures, Sexually Transmitted Disease - Surgical History Surgical History: Cholecystectomy - Family History Family History: States: Hypertension - Social History Alcohol: None Drugs: Denies - Immunization History Hx Tetanus Toxoid Vaccination: No Hx Influenza Vaccination: No Hx Pneumococcal Vaccination: No - Home Medications Home Medications: Ambulatory Orders Medication Instructions Recorded ALPRAZolam [Xanax] 1 tab PO TID 08/14/17 Meloxicam [Mobic] 1 tab PO BID 08/14/17 Morphine Sulfate [Arymo ER] 15 mg PO BID 08/14/17 Potassium Gluconate [Potassium] 100 mg PO DAILY 08/14/17 oxyCODONE [oxyCODONE Immediate 1 tab PO QID 08/14/17 Release Tab] tiZANidine [Zanaflex] 4 mg PO BID 08/14/17 - Allergies Allergies/Adverse Reactions: Allergies Allergy/AdvReac Type Severity Reaction Status Date / Time No Known Allergies Allergy Verified 08/14/17 13:33 Review of Systems ROS Statement: Except As Marked, All Systems Reviewed And Found Negative Constitutional: Positive for: Fever, Chills, Other (body aches) Cardiovascular: Negative for: Chest Pain Gastrointestinal: Negative for: Vomiting, Diarrhea Musculoskeletal: Positive for: Arm Pain (bilateral cubital areas), Hand Pain ( left, accompanied by swelling), Other (redness of bilateral cubital areas) Neurological: Positive for: Headache Physical Exam - Reviewed Nursing Documentation Reviewed: Yes Vital Signs Reviewed: Yes - Physical Exam Appears: Positive for: No Acute Distress. Negative for: Uncomfortable Head Exam: Positive for: ATRAUMATIC, NORMOCEPHALIC Skin: Positive for: Normal Color, Warm, Dry Eye Exam: Positive for: Normal appearance, EOMI, PERRL Neck: Positive for: Supple Cardiovascular/Chest: Positive for: Regular Rate, Rhythm. Negative for: Murmur Respiratory: Positive for: Normal Breath Sounds. Negative for: Respiratory Distress Gastrointestinal/Abdominal: Positive for: Normal Exam, Soft. Negative for: Tenderness Back: Positive for: Other (paraspinal and bilateral trapezius tenderness) Extremity: Positive for: Normal ROM (normal elbow joints), Tenderness (upper bilateral cubital area), Swelling (upper bilateral cubital / left hand third mcp , both accompanied by and erythema). Negative for: Other (discharge, fluctuate , mass) Neurologic/Psych: Positive for: Alert, Oriented. Negative for: Motor/Sensory Deficits - Laboratory Results Result Diagrams: 08/14/17 14:52 08/14/17 14:52 - ECG O2 Sat by Pulse Oximetry: 100 (RA) Pulse Ox Interpretation: Normal Medical Decision Making Medical Decision Making: Initial Impression: flu-like symptoms, cellulitis, headache DDx: cellulitis of arms, thrombolysis, DVT upper extremity, r/o bacteremia, tension headache, migraine, intracranial abscess Time: 14:20 Initial Plan: --VBG Shock Panel --CT Head w/o contrast --BMP --Urine drug screen --HCG Qualitative serum --ED Urine --ED Urine dipstick --CBC w/ differential --Reglan 10mg Sodium Chloride 0.9% 50ml IVPB --Toradol 30mg IVP --Blood Culture --UA --US Duplex Upper Extrm Vein Bilat 16:28 CT Head FINDINGS: HEMORRHAGE: No intracranial hemorrhage. BRAIN: No mass effect or edema. No atrophy or chronic microvascular ischemic changes. VENTRICLES: Unremarkable. No hydrocephalus. CALVARIUM: Unremarkable. PARANASAL SINUSES: Unremarkable as visualized. No significant inflammatory changes. MASTOID AIR CELLS: Unremarkable as visualized. No inflammatory changes. OTHER FINDINGS: None. IMPRESSION: No acute intracranial abnormalities. No significant findings to account for the clinical presentation. No significant interval change compared to the prior examination(s). 1645 Patient requests narcotics. I discussed with the patient ED policy on narcotics for chronic use and in opioid dependent patient, as well as STOP protocol. Dr Michel pain management will be consulted in patient. 18:17 US Upper Extremity Bilat FINDINGS: Normal flow, compressibility and respiratory phasicity was observed in the the left upper extremity deep veins. Incidental finding(s): Focal area of noncompressibility right cephalic vein antecubital fossa of likely superficial thrombophlebitis. Focal area of noncompressibility left cephalic vein likely superficial thrombophlebitis IMPRESSION: No evidence of deep venous thrombosis. Scribe Attestation: Documented by Mery Grier, acting as a scribe for Joby Wagoner MD Provider Scribe Attestation: All medical entries made by the Scribe were at my direction and personally dictated by me. I have reviewed the chart and agree that the record accurately reflects my personal performance of the history, physical exam, medical decision making, and the department course for this patient. I have also personally directed, reviewed, and agree with the discharge instructions and disposition. Disposition - Clinical Impression Clinical Impression: Drug-seeking behavior, Cellulitis of arm, Chronic pain, Headache, Sepsis - Patient ED Disposition Is Patient to be Admitted: Yes Discussed With DrNora: Lele Menjivar Doctor Will See Patient In The: Hospital Counseled Patient/Family Regarding: Studies Performed, Diagnosis - Disposition Disposition Time: 18:00 Condition: FAIR - Pt Status Changed To: Hospital Disposition Of: Observation - POA Present On Arrival: None
--- NOTE | 2017-08-14 16:30 | CT ---
PROCEDURE: CT HEAD WITHOUT CONTRAST. HISTORY: headache COMPARISON: 10/22/2010. CT head TECHNIQUE: Axial computed tomography images were obtained through the head/brain without intravenous contrast. Coronal and sagittal reconstructed images. Radiation dose: Total exam DLP = 778.53 mGy-cm. This CT exam was performed using one or more of the following dose reduction techniques: Automated exposure control, adjustment of the mA and/or kV according to patient size, and/or use of iterative reconstruction technique. FINDINGS: HEMORRHAGE: No intracranial hemorrhage. BRAIN: No mass effect or edema. No atrophy or chronic microvascular ischemic changes. VENTRICLES: Unremarkable. No hydrocephalus. CALVARIUM: Unremarkable. PARANASAL SINUSES: Unremarkable as visualized. No significant inflammatory changes. MASTOID AIR CELLS: Unremarkable as visualized. No inflammatory changes. OTHER FINDINGS: None. IMPRESSION: No acute intracranial abnormalities. No significant findings to account for the clinical presentation. No significant interval change compared to the prior examination(s).
[2017-08-14] MEDS ORDERED: oxyCODONE 10 mg Immediate Release Tab PO STA (16:42)
[2017-08-14] MEDS ORDERED: Sodium Chloride 0.9% 1,000 ML IV STA (17:33)
[2017-08-14] MEDS ORDERED: oxyCODONE 20 mg ER Tab (oxyCONTIN) PO ONE (18:00)
[2017-08-14] MEDS ORDERED: cefTRIAXone (Rocephin) 1 gm Inj ONE (18:00)
--- NOTE | 2017-08-14 18:19 | US ---
PROCEDURE: Bilateral Upper Extremity Venous Doppler HISTORY: pain redness boths arms COMPARISON: None available. TECHNIQUE: Bilateral extremity deep veins, including the lower internal jugular, subclavian, axillary and brachial veins, were evaluated flow, compressibility and respiratory phasicity. FINDINGS: Normal flow, compressibility and respiratory phasicity was observed in the the left upper extremity deep veins. Incidental finding(s): Focal area of noncompressibility right cephalic vein antecubital fossa of likely superficial thrombophlebitis. Focal area of noncompressibility left cephalic vein likely superficial thrombophlebitis IMPRESSION: No evidence of deep venous thrombosis.
[2017-08-14] MEDS ORDERED: Morphine 4 MG/ML VIAL IVP ONE (18:38)
[2017-08-14] MEDS ORDERED: Morphine 4 MG/ML VIAL ONE (18:56)
[2017-08-14] MEDS: Morphine 4 MG/ML VIAL IVP PRN (22:42)
[2017-08-15] MEDS: Piperacillin/Tazobact 3.375 GM in Sodium Chloride 0.9% 100 ML IVPB SCH ×2 (00:32→09:17)
[2017-08-15] MEDS: Sodium Chloride 0.9% 1,000 ML IV SCH ×2 (00:33→12:49)
[2017-08-15] MEDS: Morphine 4 MG/ML VIAL IVP PRN ×7 (02:03→21:20)
[2017-08-15] MEDS ORDERED: oxyCODONE 10 mg Immediate Release Tab PO PRN (03:32)
[2017-08-15 06:34] LABS: BASO # 0.1 K/uL (0.0-0.2); BASO % 0.6 % (0.0-2.0); EOS # 0.3 K/uL (0.0-0.7); EOS % 2.8 % (0.0-4.0); HEMOGLOBIN 12.6 g/dL (12.0-16.0); LYMPH % 19.3 % (20.0-40.0); MEAN CELL VOLUME 94.1 fl (81.0-99.0); MEAN CORPUSCULAR HEMOGLOBIN 32.4 pg (27.0-31.0); MEAN CORPUSCULAR HGB CONC 34.5 g/dL (33.0-37.0); MEAN PLATELET VOLUME 8.7 fl (7.2-11.7); MONO # 1.2 K/uL (0.0-0.8); MONO % 11.8 % (0.0-10.0); NEUT # 6.8 K/uL (1.8-7.0); NEUT % 65.5 % (50.0-75.0); NRBC % 0.1 % (0.0-0.0); RBC 3.9 Mil/uL (3.80-5.20); RED CELL DISTRIBUTION WIDTH 13.9 % (11.5-14.5); WHITE BLOOD COUNT 10.4 K/uL (4.8-10.8)
[2017-08-15 07:25] LABS: BLOOD UREA NITROGEN 5 mg/dl (7-17); GFR AFRICAN-AMERICAN > 60; GFR NON-AFRICAN AMERICAN > 60
[2017-08-15 07:26] LABS: ALB/GLOB RATIO 1.1 (1.0-2.1); ALBUMIN 3.4 g/dL (3.5-5.0); ALT/SGPT 33 U/L (9-52); AST/SGOT 26 U/L (14-36); CALCIUM 8.2 mg/dL (8.4-10.2)
[2017-08-15] MEDS: Pneumococcal 23-Valent Vaccine IM ONE ×2 (09:17→11:17)
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
[2017-08-15 10:15] LABS: PARTIAL THROMBOPLASTIN TIME 28.3 Seconds (25.6-37.1); PROTHROMBIN TIME 11.6 Seconds (9.8-13.1)
--- NOTE | 2017-08-15 10:55 | CP.PCM.CON ---
History of Present Illness - History of Present Illness History of Present Illness: 31 yo woman well known to me from previous admissions is referred for pain management. She developed erythema in the bilateral arms. She's a chronic pain patient on opioids, managed by Dr. Srinivasan as an outpatient. She states that recently her medications, at her own requests, have been decreased from MS Contin 30mg to 15mg q12h, from Roxicodone 30mg q8h to 20mg q6h. In addition, she's on Neurontin 300mg q8h, Zanaflex, and Mobic as well. She denies using illicit substance. Tox screen was ordered but never sent. Past Patient History - Infectious Disease Hx of Infectious Diseases: None - Past Medical History & Family History Past Medical History?: Yes - Past Social History Smoking Status: Never Smoked - CARDIAC Hx Cardiac Disorders: No Hx Hypertension: No - PULMONARY Hx Respiratory Disorders: Yes Hx Asthma: Yes - NEUROLOGICAL Hx Neurological Disorder: No Hx Seizures: No - HEENT Hx HEENT Problems: No - RENAL Hx Chronic Kidney Disease: Yes (kidney stones) Hx Kidney Stones: Yes - ENDOCRINE/METABOLIC Hx Endocrine Disorders: No - HEMATOLOGICAL/ONCOLOGICAL Hx Blood Disorders: No Hx Human Immunodeficiency Virus (HIV): No - INTEGUMENTARY Hx Dermatological Problems: No - MUSCULOSKELETAL/RHEUMATOLOGICAL Hx Musculoskeletal Disorders: Yes Hx Falls: Yes - GASTROINTESTINAL Hx Gastrointestinal Disorders: No - GENITOURINARY/GYNECOLOGICAL Hx Genitourinary Disorders: No Hx Sexually Transmitted Disorders: No - PSYCHIATRIC Hx Psychophysiologic Disorder: Yes Hx Anxiety: Yes - SURGICAL HISTORY Hx Surgeries: Yes Hx Cholecystectomy: Yes - ANESTHESIA Hx Anesthesia: Yes Hx Anesthesia Reactions: No Hx Malignant Hyperthermia: No Meds Allergies/Adverse Reactions: Allergies Allergy/AdvReac Type Severity Reaction Status Date / Time No Known Allergies Allergy Verified 08/14/17 13:33 - Medications Medications: Current Medications Alprazolam (Xanax) 1 mg PO TID [facility] Last Admin: 08/15/17 09:19 Dose: 1 mg Gabapentin (Neurontin) 600 mg PO TID [facility] Vancomycin HCl 1 gm/ Sodium (Chloride) 250 mls @ 166.667 mls/hr IVPB DAILY [facility] PRN Reason: Protocol Last Admin: 08/15/17 09:18 Dose: 166.667 mls/hr Piperacillin Sod/Tazobactam (Sod 3.375 gm/ Sodium Chloride) 100 mls @ 100 mls/ hr IVPB Q8 [facility] PRN Reason: Protocol Last Admin: 08/15/17 09:17 Dose: 100 mls/hr Sodium Chloride (Sodium Chloride 0.9%) 1,000 mls @ 100 mls/hr IV .Q10H [facility] Stop: 08/16/17 00:10 Last Admin: 08/15/17 00:33 Dose: 100 mls/hr Morphine Sulfate (Morphine Extended Release Tab) 30 mg PO Q12 [facility] Morphine Sulfate (Morphine) 6 mg IVP Q4 PRN PRN Reason: Pain, severe (8-10) Results - Vital Signs Recent Vital Signs: Last Vital Signs Temp 98.4 F 08/15/17 07:42 Pulse 64 08/15/17 07:42 Resp 20 08/15/17 07:42 BP 112/70 08/15/17 07:42 Pulse Ox 96 08/15/17 07:42 - Labs Result Diagrams: 08/15/17 06:00 08/15/17 06:00 Labs: Laboratory Results - last 24 hr 08/14/17 08/14/17 08/14/17 14:52 14:52 15:07 WBC 12.5 H D RBC 4.23 Hgb 13.7 D Hct 39.7 MCV 93.9 D MCH 32.2 H MCHC 34.3 RDW 13.7 Plt Count 268 MPV 8.8 Neut % (Auto) 72.9 Lymph % (Auto) 13.5 L [place] % (Auto) 12.0 H Eos % (Auto) 1.1 Baso % (Auto) 0.5 Neut # (Auto) 9.1 H Lymph # (Auto) 1.7 [place] # (Auto) 1.5 H Eos # (Auto) 0.1 Baso # (Auto) 0.1 PT INR APTT pO2 50 VBG pH 7.46 H VBG pCO2 38 L VBG HCO3 27.1 VBG Total CO2 28.2 H VBG O2 Sat (Calc) 90.0 H VBG Base Excess 3.1 H VBG Potassium 3.9 Glucose 94 Lactate 1.1 FiO2 21.0 Sodium 141 138.0 Potassium 4.0 Chloride 102 Carbon Dioxide 24 Anion Gap 19 BUN 8 Creatinine 0.5 L Est GFR ( Amer) > 60 Est GFR (Non-Af Amer) > 60 Random Glucose 94 Calcium 9.0 Total Bilirubin AST ALT Alkaline Phosphatase Total Protein Albumin Globulin Albumin/Globulin Ratio Serum HCG, Qual Negative Venous Blood Potassium 3.9 08/15/17 08/15/17 08/15/17 06:00 06:00 09:30 WBC 10.4 RBC 3.90 Hgb 12.6 Hct 36.7 MCV 94.1 MCH 32.4 H MCHC 34.5 RDW 13.9 Plt Count 240 MPV 8.7 Neut % (Auto) 65.5 Lymph % (Auto) 19.3 L [place] % (Auto) 11.8 H Eos % (Auto) 2.8 Baso % (Auto) 0.6 Neut # (Auto) 6.8 Lymph # (Auto) 2.0 [place] # (Auto) 1.2 H Eos # (Auto) 0.3 Baso # (Auto) 0.1 PT 11.6 INR 1.0 APTT 28.3 pO2 VBG pH VBG pCO2 VBG HCO3 VBG Total CO2 VBG O2 Sat (Calc) VBG Base Excess VBG Potassium Glucose Lactate FiO2 Sodium 141 Potassium 3.7 Chloride 104 Carbon Dioxide 24 Anion Gap 17 BUN 5 L Creatinine 0.5 L Est GFR ( Amer) > 60 Est GFR (Non-Af Amer) > 60 Random Glucose 102 Calcium 8.2 L Total Bilirubin 0.4 AST 26 ALT 33 Alkaline Phosphatase 55 Total Protein 6.6 Albumin 3.4 L Globulin 3.2 Albumin/Globulin Ratio 1.1 Serum HCG, Qual Venous Blood Potassium Assessment & Plan (1) Cellulitis of arm Assessment and Plan: 31 yo woman w/ chronic pain, high tolerance, with cellulitis whose etiology is unclear. Cultures pending. - resume home meds of MS Contin, start at 30mg q12h for now - hold home meds of Roxicodone - Morphine IV 6mg q4h PRN for breakthrough - resume Neurontin, start at 600mg q8h - must check tox screen, can screen for illicit substance - psych consult Status: Acute
[2017-08-15 10:59] LABS: SQUAMOUS EPITHIAL < 1 /hpf (0-5); URINE BILIRUBIN NEGATIVE (NEGATIVE); URINE BLOOD NEGATIVE (NEGATIVE); URINE CLARITY CLEAR (Clear); URINE COLOR STRAW (YELLOW); URINE GLUCOSE (UA) NEG (Normal); URINE LEUKOCYTE ESTERASE NEG Leu/uL (Negative); URINE PROTEIN NEGATIVE (NEGATIVE); URINE UROBILINOGEN 0.2-1.0 mg/dL (0.2-1.0)
[2017-08-15] MEDS: Morphine 30 mg SR Tab PO SCH ×2 (11:04→20:34)
[2017-08-15 11:24] LABS: BARBITURATES, UR NEGATIVE (NEGATIVE); BENZODIAZEPINES, UR POSITIVE (NEGATIVE); OPIATES, UR POSITIVE (NEGATIVE); PHENCYCLIDINE, UR NEGATIVE (NEGATIVE)
[2017-08-15] MEDS ORDERED: Albuterol-Ipratrop 3 mg / 0.5 (3 ml) UD INH PRN (11:37)
--- NOTE | 2017-08-15 13:10 | CP.PCM.CON ---
History of Present Illness - History of Present Illness History of Present Illness: 31 year old female, with a history of chronic neck and back pain, presents to the emergency department complaining of fever, body aches, chills, headache, and bilateral arm pain / redness / swelling in her cubital area, onset four days ago. Also, the patient noted left hand swelling. She states that her symptoms came one at a time and subsided but came back. Denies chest pain, vomiting, and diarrhea. As for her chronic neck and back pain, she reports taking morphine and percocet. 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 Is on chronic opioids - Dr Srinivasan PMD: Tommy Boo - Medical History PMH: Anxiety, Asthma, Back Problems, Kidney Stones, Chronic Kidney Disease ( kidney stones), Chronic Pain Denies: Diabetes, Hepatitis, HIV, HTN, Seizures, Sexually Transmitted Disease - Surgical History Surgical History: Cholecystectomy Review of Systems - Constitutional Constitutional: As Per HPI - EENT Eyes: absent: As Per HPI, Blind Spots, Blurred Vision, Change in Vision, Decreased Night Vision, Diplopia, Discharge, Dry Eye, Exophthalmos, Floaters, Irritation, Itchy Eyes, Loss of Peripheral Vision, Pain, Photophobia, Requires Corrective Lenses, Sees Flashes, Spots in Vision, Tunnel Vision, Other Visual Disturbances, Loss of Vision, Other Ears: absent: As Per HPI, Decreased Hearing, Ear Discharge, Ear Pain, Tinnitus, Abnormal Hearing, Disequilibrium, Dizziness, Other Nose/Mouth/Throat: absent: As Per HPI, Epistaxis, Nasal Congestion, Nasal Discharge, Nasal Obstruction, Nasal Trauma, Nose Pain, Post Nasal Drip, Sinus Pain, Sinus Pressure, Bleeding Gums, Change in Voice, Dental Pain, Dry Mouth, Dysphagia, Halitosis, Hoarsness, Lip Swelling, Mouth Lesions, Mouth Pain, Odynophagia, Sore Throat, Throat Swelling, Tongue Swelling, Facial Pain, Neck Pain, Neck Mass, Other - Breasts Breasts: absent: As Per HPI, Change in Shape, Mass, Pain, Nipple Discharge, Nipple Inversion, Skin Changes, Swelling, Other - Cardiovascular Cardiovascular: absent: As Per HPI, Acrocyanosis, Chest Pain, Chest Pain at Rest , Chest Pain with Activity, Claudication, Diaphoresis, Dyspnea, Dyspnea on Exertion, Edema, Irregular Heart Rhythm, Pain Radiating to Arm/Neck/Jaw, Leg Edema, Leg Ulcers, Lightheadedness, Orthopnea, Palpitations, Paroxysmal Nocturnal Dyspnea, Pedal Edema, Radiating Pain, Rapid Heart Rate, Slow Heart Rate, Syncope, Other - Respiratory Respiratory: absent: As Per HPI, Cough, Dyspnea, Hemoptysis, Dyspnea on Exertion , Wheezing, Snoring, Stridor, Pain on Inspiration, Chest Congestion, Excessive Mucous Production, Change in Mucous Color, Pain with Coughing, Other - Gastrointestinal Gastrointestinal: absent: As Per HPI, Abdominal Pain, Belching, Bloating, Change in Bowel Habits, Change in Stool Character, Coffee Ground Emesis, Constipation, Cramping, Diarrhea, Dyspepsia, Dysphagia, Early Satiety, Excessive Flatus, Fecal Incontinence, Heartburn, Hematemesis, Hematochezia, Loose Stools, Melena, Nausea, Odynophagia, Temesmus, Vomiting, Other - Genitourinary Genitourinary: Flank Pain - Reproductive: Female Reproductive:Female: absent: As Per HPI, Amenorrhea, Amenorrhea/ Control, Currently Menstual, Cycle <21 Days, Cycle >35 Days, Cycle Variable, Menses 1-7 Days, Menses >/= 8 Days, Menses Variable, Cycle > 4 Weeks Between, No Menses for 6 Months, Heavy Menses, Light Menses, Normal Menses, Spotting Between Cycles , S/P Hysterectomy, Menopausal, Post Menopausal, Premenarche, Abnormal Vaginal Bleeding, Dysmenorrhea, Dyspareunia, Genital Lesions, Genital Pruritis, Pelvic Pain, Prolapse Symptoms, Sexual Dysfunction, Vaginal Discharge, Vaginal Dryness , Vaginal Odor, Vaginal Pruritis, Other - Menstruation Menstruation: absent: As Per HPI, Amenorrhea, Amenorrhea/ Control, Currently Menstual, Cycle <21 Days, Cycle >35 Days, Cycle Variable, Menses 1-7 Days, Menses >/= 8 Days, Menses Variable, Cycle > 4 Weeks Between, No Menses for 6 Months, Heavy Menses, Light Menses, Normal Menses, Spotting Between Cycles , S/P Hysterectomy, Menopausal, Post Menopausal, Premenarche, Abnormal Vaginal Bleeding, Dysmenorrhea, Other - Musculoskeletal Musculoskeletal: As Per HPI - Integumentary Integumentary: As Per HPI - Neurological Neurological: As Per HPI - Psychiatric Psychiatric: absent: As Per HPI, Abnormal Sleep Pattern, Anhedonia, Anxiety, Auditory Hallucinations, Behavioral Changes, Change in Appetite, Change in Libido, Confusion, Depression, Difficulty Concentrating, Hallucinations, Homicidal Ideation, Hopelessness, Irritability, Memory Loss, Mood Swings, Panic Attacks, Paranoia, Suicidal Ideation, Visual Hallucinations, Tactile Hallucinations, Other - Endocrine Endocrine: absent: As Per HPI, Change in Body Appearance, Change in Libido, Cold Intolorance, Deepening of Voice, Excessive Sweating, Fatigue, Flushing, Heat Intolorance, Increase in Ring/Shoe/Hat Size, Palpitations, Polydipsia, Polyphagia, Polyuria, Other Past Patient History - Infectious Disease Hx of Infectious Diseases: None - Past Medical History & Family History Past Medical History?: Yes - Past Social History Smoking Status: Never Smoked - CARDIAC Hx Cardiac Disorders: No Hx Hypertension: No - PULMONARY Hx Respiratory Disorders: Yes Hx Asthma: Yes - NEUROLOGICAL Hx Neurological Disorder: No Hx Seizures: No - HEENT Hx HEENT Problems: No - RENAL Hx Chronic Kidney Disease: Yes (kidney stones) Hx Kidney Stones: Yes - ENDOCRINE/METABOLIC Hx Endocrine Disorders: No - HEMATOLOGICAL/ONCOLOGICAL Hx Blood Disorders: No Hx Human Immunodeficiency Virus (HIV): No - INTEGUMENTARY Hx Dermatological Problems: No - MUSCULOSKELETAL/RHEUMATOLOGICAL Hx Musculoskeletal Disorders: Yes Hx Falls: Yes - GASTROINTESTINAL Hx Gastrointestinal Disorders: No - GENITOURINARY/GYNECOLOGICAL Hx Genitourinary Disorders: No Hx Sexually Transmitted Disorders: No - PSYCHIATRIC Hx Psychophysiologic Disorder: Yes Hx Anxiety: Yes - SURGICAL HISTORY Hx Surgeries: Yes Hx Cholecystectomy: Yes - ANESTHESIA Hx Anesthesia: Yes Hx Anesthesia Reactions: No Hx Malignant Hyperthermia: No Meds Allergies/Adverse Reactions: Allergies Allergy/AdvReac Type Severity Reaction Status Date / Time No Known Allergies Allergy Verified 08/14/17 13:33 - Medications Medications: Current Medications Albuterol/Ipratropium (Duoneb 3 Mg/0.5 Mg (3 Ml) Ud) 3 ml INH RQ6 PRN PRN Reason: Shortness of Breath Alprazolam (Xanax) 1 mg PO TID [facility] Last Admin: 08/15/17 09:19 Dose: 1 mg Gabapentin (Neurontin) 600 mg PO TID [facility] Last Admin: 08/15/17 12:48 Dose: 600 mg Vancomycin HCl 1 gm/ Sodium (Chloride) 250 mls @ 166.667 mls/hr IVPB DAILY [facility] PRN Reason: Protocol Last Admin: 08/15/17 09:18 Dose: 166.667 mls/hr Piperacillin Sod/Tazobactam (Sod 3.375 gm/ Sodium Chloride) 100 mls @ 100 mls/ hr IVPB Q8 [facility] PRN Reason: Protocol Last Admin: 08/15/17 09:17 Dose: 100 mls/hr Sodium Chloride (Sodium Chloride 0.9%) 1,000 mls @ 100 mls/hr IV .Q10H [facility] Stop: 08/16/17 00:10 Last Admin: 08/15/17 12:49 Dose: Not Given Morphine Sulfate (Morphine Extended Release Tab) 30 mg PO Q12 [facility] Last Admin: 08/15/17 11:04 Dose: 30 mg Morphine Sulfate (Morphine) 6 mg IVP Q4 PRN PRN Reason: Pain, severe (8-10) Last Admin: 08/15/17 11:05 Dose: 6 mg Ondansetron HCl (Zofran Inj) 4 mg IVP Q6 PRN PRN Reason: Nausea/Vomiting Physical Exam - Constitutional Appears: Non-toxic, Chronically Ill - Head Exam Head Exam: NORMOCEPHALIC - Eye Exam Eye Exam: PERRL. absent: Scleral icterus Pupil Exam: NORMAL ACCOMODATION - ENT Exam ENT Exam: Mucous Membranes Dry, Normal External Ear Exam, Normal Oropharynx - Neck Exam Neck exam: Negative for: Lymphadenopathy - Respiratory Exam Respiratory Exam: Decreased Breath Sounds, Clear to Auscultation Bilateral - Cardiovascular Exam Cardiovascular Exam: REGULAR RHYTHM, +S1, +S2 - GI/Abdominal Exam GI & Abdominal Exam: Diminished Bowel Sounds, Soft. absent: Tenderness - Rectal Exam Rectal Exam: Deferred - Exam Exam: NORMAL INSPECTION - Extremities Exam Extremities exam: Positive for: pedal pulses present. Negative for: calf tenderness, pedal edema, tenderness - Back Exam Back exam: CVA tenderness (L), CVA tenderness (R). absent: paraspinal tenderness - Neurological Exam Neurological exam: Alert, CN II-XII Intact, Oriented x3, Reflexes Normal - Psychiatric Exam Psychiatric exam: Normal Mood - Skin Skin Exam: Dry, Intact Additional comments: cellulitis right arm and left hand Results - Vital Signs Recent Vital Signs: Last Vital Signs Temp 98.4 F 08/15/17 07:42 Pulse 64 08/15/17 07:42 Resp 20 08/15/17 07:42 BP 112/70 08/15/17 07:42 Pulse Ox 96 08/15/17 07:42 - Labs Result Diagrams: 08/15/17 06:00 08/15/17 06:00 Labs: Laboratory Results - last 24 hr 08/14/17 08/14/17 08/14/17 14:52 14:52 15:07 WBC 12.5 H D RBC 4.23 Hgb 13.7 D Hct 39.7 MCV 93.9 D MCH 32.2 H MCHC 34.3 RDW 13.7 Plt Count 268 MPV 8.8 Neut % (Auto) 72.9 Lymph % (Auto) 13.5 L [place] % (Auto) 12.0 H Eos % (Auto) 1.1 Baso % (Auto) 0.5 Neut # (Auto) 9.1 H Lymph # (Auto) 1.7 [place] # (Auto) 1.5 H Eos # (Auto) 0.1 Baso # (Auto) 0.1 ESR PT INR APTT pO2 50 VBG pH 7.46 H VBG pCO2 38 L VBG HCO3 27.1 VBG Total CO2 28.2 H VBG O2 Sat (Calc) 90.0 H VBG Base Excess 3.1 H VBG Potassium 3.9 Glucose 94 Lactate 1.1 FiO2 21.0 Sodium 141 138.0 Potassium 4.0 Chloride 102 Carbon Dioxide 24 Anion Gap 19 BUN 8 Creatinine 0.5 L Est GFR ( Amer) > 60 Est GFR (Non-Af Amer) > 60 Random Glucose 94 Calcium 9.0 Total Bilirubin AST ALT Alkaline Phosphatase Total Protein Albumin Globulin Albumin/Globulin Ratio Serum HCG, Qual Negative Venous Blood Potassium 3.9 Urine Color Urine Clarity Urine pH Ur Specific [place] Urine Protein Urine Glucose (UA) Urine Ketones Urine Blood Urine Nitrate Urine Bilirubin Urine Urobilinogen Ur Leukocyte Esterase Urine RBC (Auto) Urine Microscopic WBC Ur Squamous Epith Cells Urine Opiates Screen Urine Methadone Screen Ur Barbiturates Screen Ur Phencyclidine Scrn Ur Amphetamines Screen U Benzodiazepines Scrn U Oth Cocaine Metabols U Cannabinoids Screen 08/15/17 08/15/17 08/15/17 06:00 06:00 09:30 WBC 10.4 RBC 3.90 Hgb 12.6 Hct 36.7 MCV 94.1 MCH 32.4 H MCHC 34.5 RDW 13.9 Plt Count 240 MPV 8.7 Neut % (Auto) 65.5 Lymph % (Auto) 19.3 L [place] % (Auto) 11.8 H Eos % (Auto) 2.8 Baso % (Auto) 0.6 Neut # (Auto) 6.8 Lymph # (Auto) 2.0 [place] # (Auto) 1.2 H Eos # (Auto) 0.3 Baso # (Auto) 0.1 ESR 29 H PT INR APTT pO2 VBG pH VBG pCO2 VBG HCO3 VBG Total CO2 VBG O2 Sat (Calc) VBG Base Excess VBG Potassium Glucose Lactate FiO2 Sodium 141 Potassium 3.7 Chloride 104 Carbon Dioxide 24 Anion Gap 17 BUN 5 L Creatinine 0.5 L Est GFR ( Amer) > 60 Est GFR (Non-Af Amer) > 60 Random Glucose 102 Calcium 8.2 L Total Bilirubin 0.4 AST 26 ALT 33 Alkaline Phosphatase 55 Total Protein 6.6 Albumin 3.4 L Globulin 3.2 Albumin/Globulin Ratio 1.1 Serum HCG, Qual Venous Blood Potassium Urine Color Urine Clarity Urine pH Ur Specific [place] Urine Protein Urine Glucose (UA) Urine Ketones Urine Blood Urine Nitrate Urine Bilirubin Urine Urobilinogen Ur Leukocyte Esterase Urine RBC (Auto) Urine Microscopic WBC Ur Squamous Epith Cells Urine Opiates Screen Urine Methadone Screen Ur Barbiturates Screen Ur Phencyclidine Scrn Ur Amphetamines Screen U Benzodiazepines Scrn U Oth Cocaine Metabols U Cannabinoids Screen 08/15/17 08/15/17 08/15/17 09:30 10:52 10:52 WBC RBC Hgb Hct MCV MCH MCHC RDW Plt Count MPV Neut % (Auto) Lymph % (Auto) [place] % (Auto) Eos % (Auto) Baso % (Auto) Neut # (Auto) Lymph # (Auto) [place] # (Auto) Eos # (Auto) Baso # (Auto) ESR PT 11.6 INR 1.0 APTT 28.3 pO2 VBG pH VBG pCO2 VBG HCO3 VBG Total CO2 VBG O2 Sat (Calc) VBG Base Excess VBG Potassium Glucose Lactate FiO2 Sodium Potassium Chloride Carbon Dioxide Anion Gap BUN Creatinine Est GFR ( Amer) Est GFR (Non-Af Amer) Random Glucose Calcium Total Bilirubin AST ALT Alkaline Phosphatase Total Protein Albumin Globulin Albumin/Globulin Ratio Serum HCG, Qual Venous Blood Potassium Urine Color Straw Urine Clarity Clear Urine pH 8.0 Ur Specific [place] < 1.005 Urine Protein Negative Urine Glucose (UA) Neg Urine Ketones Negative Urine Blood Negative Urine Nitrate Negative Urine Bilirubin Negative Urine Urobilinogen 0.2-1.0 Ur Leukocyte Esterase Neg Urine RBC (Auto) 1 Urine Microscopic WBC < 1 Ur Squamous Epith Cells < 1 Urine Opiates Screen Positive H Urine Methadone Screen Negative Ur Barbiturates Screen Negative Ur Phencyclidine Scrn Negative Ur Amphetamines Screen Negative U Benzodiazepines Scrn Positive U Oth Cocaine Metabols Negative U Cannabinoids Screen Negative Assessment & Plan (1) Cellulitis of arm Status: Acute - Assessment and Plan (Free Text) Assessment: cont iv antibiotics OK to d/c zosyn and switch to Unasyn for strep
--- NOTE | 2017-08-15 16:27 | RAD ---
HISTORY: Cough, wheeze, hx of asthma COMPARISON: 12/25/2010 TECHNIQUE: Chest PA and lateral FINDINGS: LUNGS: No active pulmonary disease. PLEURA: No significant pleural effusion identified. No pneumothorax apparent. CARDIOVASCULAR: Normal. OSSEOUS STRUCTURES: No significant abnormalities. VISUALIZED UPPER ABDOMEN: Normal. OTHER FINDINGS: None. IMPRESSION: No active disease. No significant interval change compared to the prior examination(s).
[2017-08-15] MEDS: Enoxaparin 40 mg Syringe SC SCH (17:07)
[2017-08-16] MEDS: Morphine 4 MG/ML VIAL IVP PRN ×6 (01:23→22:34)
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
[2017-08-16] MEDS: Enoxaparin 40 mg Syringe SC SCH (08:32)
[2017-08-16] MEDS: Morphine 30 mg SR Tab PO SCH ×2 (08:32→20:20)
[2017-08-16 08:54] LABS: BASO # 0.1 K/uL (0.0-0.2); BASO % 0.7 % (0.0-2.0); EOS # 0.6 K/uL (0.0-0.7); EOS % 7.8 % (0.0-4.0); HEMOGLOBIN 12.6 g/dL (12.0-16.0); LYMPH # 2.3 K/uL (1.0-4.3); LYMPH % 32.2 % (20.0-40.0); MEAN CELL VOLUME 93.7 fl (81.0-99.0); MEAN CORPUSCULAR HEMOGLOBIN 32.5 pg (27.0-31.0); MEAN CORPUSCULAR HGB CONC 34.6 g/dL (33.0-37.0); MEAN PLATELET VOLUME 8.5 fl (7.2-11.7); MONO # 0.7 K/uL (0.0-0.8); MONO % 10.1 % (0.0-10.0); NEUT # 3.6 K/uL (1.8-7.0); NEUT % 49.2 % (50.0-75.0); NRBC % 0.1 % (0.0-0.0); RBC 3.9 Mil/uL (3.80-5.20); RED CELL DISTRIBUTION WIDTH 13.7 % (11.5-14.5); WHITE BLOOD COUNT 7.3 K/uL (4.8-10.8)
[2017-08-16 09:12] LABS: VANCOMYCIN TROUGH < 5.0 ug/mL (5.0-10.0)
--- NOTE | 2017-08-16 12:24 | CARD ---
APPROVED REPORT EKG Measurement Heart [id number] <Conclusion> Sinus rhythm with marked sinus arrhythmia Otherwise normal ECG
[2017-08-16 17:14] LABS: HEPATITIS B SURFACE AG Negative (NEGATIVE)
[2017-08-16 17:18] LABS: HIV 1&2 ANTIBODY NEGATIVE (NEGATIVE)
[2017-08-16 17:20] LABS: HEPATITIS A IGM NEGATIVE (NEGATIVE); HEPATITIS B CORE AB NEGATIVE (NEGATIVE)
[2017-08-16 17:31] LABS: HEPATITIS C ANTIBODY NEGATIVE (NEGATIVE)
[2017-08-17] MEDS: Morphine 4 MG/ML VIAL IVP PRN ×5 (04:38→21:22)
[2017-08-17] MEDS: Morphine 30 mg SR Tab PO SCH ×2 (08:29→22:21)
[2017-08-17] MEDS: Enoxaparin 40 mg Syringe SC SCH (08:31)
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
--- NOTE | 2017-08-17 13:30 | CP.PCM.PCO ---
Physician Communication Note - Physician Communication Note Physician Communication Note: has tender cord above right brachial fossa will check doppler await MRI
--- NOTE | 2017-08-17 16:01 | CP.PCM.PN ---
Subjective - Date & Time of Evaluation Date of Evaluation: 08/17/17 Time of Evaluation: 12:30 - Subjective Subjective: Infectious Disease Note- Dr. Ramirez 31 y.o female seen and evaluated at beside with attending Dr. Ramirez. Patient is sitting comfortably in bed, in NAD, and AA0x3. Patient reports feeling better. Reports swelling and redness going down. Reports pain and unable to extend elbow. Seen ambulating without issues during visitation. Denies fever. No new complaints. Objective - Vital Signs/Intake and Output Vital Signs (last 24 hours): Temp Pulse Resp BP Pulse Ox 98.1 F 75 20 117/74 99 08/17/17 08:12 08/17/17 08:12 08/17/17 08:12 08/17/17 08:12 08/17/17 08:12 - Medications Medications: Current Medications Albuterol/Ipratropium (Duoneb 3 Mg/0.5 Mg (3 Ml) Ud) 3 ml INH RQ6 PRN PRN Reason: Shortness of Breath Alprazolam (Xanax) 1 mg PO TID [facility] Last Admin: 08/17/17 13:07 Dose: 1 mg Enoxaparin Sodium (Lovenox) 40 mg SC DAILY [facility] PRN Reason: Protocol Last Admin: 08/17/17 08:31 Dose: Not Given Gabapentin (Neurontin) 600 mg PO TID [facility] Last Admin: 08/17/17 13:08 Dose: 600 mg Ampicillin Sodium/Sulbactam (Sodium 1.5 gm/ Sodium Chloride) 100 mls @ 100 mls/ hr IVPB Q6 [facility] PRN Reason: Protocol Last Admin: 08/17/17 09:09 Dose: 100 mls/hr Vancomycin HCl 1 gm/ Sodium (Chloride) 250 mls @ 250 mls/hr IVPB Q12H [facility] PRN Reason: Protocol Morphine Sulfate (Morphine Extended Release Tab) 30 mg PO Q12 [facility] Last Admin: 08/17/17 08:29 Dose: 30 mg Morphine Sulfate (Morphine) 6 mg IVP Q4 PRN PRN Reason: Pain, severe (8-10) Last Admin: 08/17/17 13:08 Dose: 6 mg Ondansetron HCl (Zofran Inj) 4 mg IVP Q6 PRN PRN Reason: Nausea/Vomiting - Labs Labs: 08/16/17 08:00 08/15/17 06:00 PT 11.6 Seconds (9.8-13.1) 08/15/17 09:30 INR 1.0 (0.9-1.2) 08/15/17 09:30 APTT 28.3 Seconds (25.6-37.1) 08/15/17 09:30 - Constitutional Appears: Non-toxic, No Acute Distress - Head Exam Head Exam: ATRAUMATIC, NORMAL INSPECTION - Eye Exam Eye Exam: Normal appearance Pupil Exam: NORMAL ACCOMODATION - ENT Exam ENT Exam: Mucous Membranes Moist - Neck Exam Neck Exam: absent: Lymphadenopathy - Respiratory Exam Respiratory Exam: NORMAL BREATHING PATTERN - Cardiovascular Exam Cardiovascular Exam: +S1, +S2 - GI/Abdominal Exam GI & Abdominal Exam: Soft. absent: Tenderness - Extremities Exam Extremities Exam: Normal Capillary Refill. absent: Calf Tenderness, Tenderness - Neurological Exam Neurological Exam: Alert, Awake, Oriented x3 - Psychiatric Exam Psychiatric exam: Normal Affect, Normal Mood - Additional Findings Additional findings: cellulitis right arm and left hand- swelling decrease, erythema diminished tender cord above right brachial fossa unable to extend at right elbow Assessment and Plan - Assessment and Plan (Free Text) Assessment: (1) Cellulitis of arm Status: Acute Plan: c/w current abx Vanco f/u trough will check doppler await MRI
[2017-08-17] MEDS ORDERED: Gadodiamide 287 MG/ML VIAL (15ML) IV ONE (16:24)
[2017-08-18] MEDS: Morphine 4 MG/ML VIAL IVP PRN ×6 (01:18→22:34)
[2017-08-18] MEDS: Enoxaparin 40 mg Syringe SC SCH ×2 (08:46→09:59)
[2017-08-18] MEDS: Morphine 30 mg SR Tab PO SCH ×2 (08:52→20:21)
--- NOTE | 2017-08-18 09:49 | MRI ---
PROCEDURE: MRI Left Elbow HISTORY: Pain. COMPARISON: None available. TECHNIQUE: Multiecho multiplanar sequences were performed through the left elbow without the use of intravenous contrast. FINDINGS: BONES: Intact. CARTILAGE: Preserved. JOINT FLUID: Normal. MUSCLES: Normal. VESSELS: Normal. NERVES: Cubital tunnel normal. MEDIAL: Flexor pronator origin intact. Ulnar collateral ligament intact. LATERAL: Common extensor tendon intact. Radial collateral ligament intact. Lateral ulnar collateral ligament intact. TRICEPS TENDON: Intact. BICEPS TENDON: Intact. BRACHIALIS TENDON: Intact. OTHER FINDINGS: Infiltration in the volar subcutaneous soft tissues of the elbow. No evidence of fluid collection. Findings may represent a localized infection or fasciitis. IMPRESSION: Infiltration in the volar subcutaneous soft tissues of the elbow. No evidence of fluid collection. Findings may represent a localized infection or fasciitis. No evidence of osteomyelitis.
--- NOTE | 2017-08-18 13:11 | CP.PCM.PN ---
Subjective - Date & Time of Evaluation Date of Evaluation: 08/18/17 Time of Evaluation: 09:00 - Subjective Subjective: swelling right arm volar aspect is worse denies fever or chills would consider surgical eval and repeat US/ doppler to r/o DVT Objective - Vital Signs/Intake and Output Vital Signs (last 24 hours): Temp Pulse Resp BP Pulse Ox 98.3 F 66 19 111/68 96 08/18/17 09:33 08/18/17 09:33 08/18/17 09:33 08/18/17 09:33 08/18/17 09:33 - Medications Medications: Current Medications Albuterol/Ipratropium (Duoneb 3 Mg/0.5 Mg (3 Ml) Ud) 3 ml INH RQ6 PRN PRN Reason: Shortness of Breath Alprazolam (Xanax) 1 mg PO TID [facility] Last Admin: 08/18/17 12:54 Dose: 1 mg Duloxetine HCl (Cymbalta) 30 mg PO DAILY [facility] Last Admin: 08/18/17 08:46 Dose: 30 mg Enoxaparin Sodium (Lovenox) 40 mg SC DAILY [facility] PRN Reason: Protocol Last Admin: 08/18/17 09:59 Dose: Not Given Gabapentin (Neurontin) 600 mg PO TID [facility] Last Admin: 08/18/17 12:54 Dose: 600 mg Ampicillin Sodium/Sulbactam (Sodium 1.5 gm/ Sodium Chloride) 100 mls @ 100 mls/ hr IVPB Q6 [facility] PRN Reason: Protocol Last Admin: 08/18/17 09:01 Dose: 100 mls/hr Vancomycin HCl 1 gm/ Sodium (Chloride) 250 mls @ 250 mls/hr IVPB Q12 [facility] PRN Reason: Protocol Last Admin: 08/18/17 08:54 Dose: 250 mls/hr Morphine Sulfate (Morphine Extended Release Tab) 30 mg PO Q12 [facility] Last Admin: 08/18/17 08:52 Dose: 30 mg Morphine Sulfate (Morphine) 6 mg IVP Q4 PRN PRN Reason: Pain, severe (8-10) Last Admin: 08/18/17 10:00 Dose: 6 mg Ondansetron HCl (Zofran Inj) 4 mg IVP Q6 PRN PRN Reason: Nausea/Vomiting - Labs Labs: 08/16/17 08:00 08/15/17 06:00 PT 11.6 Seconds (9.8-13.1) 08/15/17 09:30 INR 1.0 (0.9-1.2) 08/15/17 09:30 APTT 28.3 Seconds (25.6-37.1) 08/15/17 09:30 - Constitutional Appears: Non-toxic, Chronically Ill - Head Exam Head Exam: NORMOCEPHALIC - Eye Exam Eye Exam: PERRL - ENT Exam ENT Exam: Mucous Membranes Dry - Neck Exam Neck Exam: absent: Lymphadenopathy - Respiratory Exam Respiratory Exam: Decreased Breath Sounds - Cardiovascular Exam Cardiovascular Exam: REGULAR RHYTHM - GI/Abdominal Exam GI & Abdominal Exam: Distended, Soft - Rectal Exam Rectal Exam: Deferred - Exam Exam: NORMAL INSPECTION - Extremities Exam Extremities Exam: absent: Pedal Edema Additional comments: swelling/ tenderness right arm above elbow on volar aspect appears worse swelling right arm volar aspect is worse denies fever or chills would consider surgical eval and repeat US/ doppler to r/o DVT - Back Exam Back Exam: absent: CVA tenderness (L), CVA tenderness (R) - Neurological Exam Neurological Exam: Alert, Awake, CN II-XII Intact, Oriented x3 Neuro motor strength exam: Left Upper Extremity: 4, Right Upper Extremity: 4, Left Lower Extremity: 4, Right Lower Extremity: 4 - Psychiatric Exam Psychiatric exam: Normal Mood - Skin Skin Exam: Dry Assessment and Plan (1) Cellulitis of arm Status: Acute
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
[2017-08-19] MEDS: Morphine 4 MG/ML VIAL IVP PRN ×4 (03:43→16:11)
[2017-08-19 07:36] LABS: ALB/GLOB RATIO 1.1 (1.0-2.1); ALT/SGPT 27 U/L (9-52); AST/SGOT 19 U/L (14-36); BLOOD UREA NITROGEN 8 mg/dl (7-17); CALCIUM 9.2 mg/dL (8.4-10.2); GFR AFRICAN-AMERICAN > 60; GFR NON-AFRICAN AMERICAN > 60
--- NOTE | 2017-08-19 07:42 | CP.PCM.PN ---
<HomeroMaribel - Last Filed: 08/19/17 07:45> Subjective - Date & Time of Evaluation Date of Evaluation: 08/19/17 Time of Evaluation: 07:42 - Subjective Subjective: Surgery Pt seen and examined. c/o arm pain. Improved. Denies fever, nausea, diarrhea. Objective - Vital Signs/Intake and Output Vital Signs (last 24 hours): Temp Pulse Resp BP Pulse Ox 97.8 F 62 20 111/68 96 08/19/17 00:21 08/19/17 00:21 08/19/17 00:21 08/19/17 00:21 08/19/17 00:21 - Medications Medications: Current Medications Albuterol/Ipratropium (Duoneb 3 Mg/0.5 Mg (3 Ml) Ud) 3 ml INH RQ6 PRN PRN Reason: Shortness of Breath Alprazolam (Xanax) 1 mg PO TID [facility] Last Admin: 08/18/17 17:22 Dose: 1 mg Duloxetine HCl (Cymbalta) 30 mg PO DAILY [facility] Last Admin: 08/18/17 08:46 Dose: 30 mg Gabapentin (Neurontin) 600 mg PO TID [facility] Last Admin: 08/18/17 17:23 Dose: 600 mg Ampicillin Sodium/Sulbactam (Sodium 1.5 gm/ Sodium Chloride) 100 mls @ 100 mls/ hr IVPB Q6 [facility] PRN Reason: Protocol Last Admin: 08/19/17 03:42 Dose: 100 mls/hr Vancomycin HCl 1 gm/ Sodium (Chloride) 250 mls @ 250 mls/hr IVPB Q12 [facility] PRN Reason: Protocol Last Admin: 08/18/17 20:22 Dose: 250 mls/hr Ibuprofen (Motrin Tab) 400 mg PO Q4 PRN PRN Reason: Pain, Mild (1-3) Morphine Sulfate (Morphine Extended Release Tab) 30 mg PO Q12 [facility] Last Admin: 08/18/17 20:21 Dose: 30 mg Morphine Sulfate (Morphine) 6 mg IVP Q4 PRN PRN Reason: Pain, severe (8-10) Last Admin: 08/19/17 03:43 Dose: 6 mg Ondansetron HCl (Zofran Inj) 4 mg IVP Q6 PRN PRN Reason: Nausea/Vomiting - Labs Labs: 08/16/17 08:00 08/19/17 05:30 PT 11.6 Seconds (9.8-13.1) 08/15/17 09:30 INR 1.0 (0.9-1.2) 08/15/17 09:30 APTT 28.3 Seconds (25.6-37.1) 08/15/17 09:30 - Constitutional Appears: No Acute Distress - Head Exam Head Exam: ATRAUMATIC, NORMAL INSPECTION, NORMOCEPHALIC - Eye Exam Eye Exam: EOMI, Normal appearance, PERRL Pupil Exam: NORMAL ACCOMODATION, PERRL - ENT Exam ENT Exam: Mucous Membranes Moist, Normal Exam - Neck Exam Neck Exam: Full ROM, Normal Inspection. absent: Lymphadenopathy - Respiratory Exam Respiratory Exam: Clear to Ausculation Bilateral, NORMAL BREATHING PATTERN - Cardiovascular Exam Cardiovascular Exam: REGULAR RHYTHM, +S1, +S2. absent: Murmur - GI/Abdominal Exam GI & Abdominal Exam: Soft, Normal Bowel Sounds. absent: Tenderness - Extremities Exam Extremities Exam: Normal Capillary Refill. absent: Full ROM, Joint Swelling, Normal Inspection, Pedal Edema Additional comments: b/l antecubital area dec ROM. Mild erythema. firm fibrotic band 2x4cm. TTP. 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 US: b/l cephalic vein supericial thrombophlebitis. No DVT. h/o bleeding disorder. arm cellulitis 2/2 drug abuse , possible IV drug abuser. Pt denies. erythema nodosum: more likely to present around the shins, however can also manifest on upper extremity as well. hypersentivity reaction: contact dermatitis : recent change of lotion. Symptoms improving -NSAIDS for pain: first time tx for Superficial thrombophlebitis. -f/u hematology work up -alternating Warm compress and cold compress -Keep arms elevated above waist -No urgent surgical intervention at this time. Will DW Dr. Domínguez <Basil Domínguez - Last Filed: 08/19/17 09:43> Objective - Vital Signs/Intake and Output Vital Signs (last 24 hours): Temp Pulse Resp BP Pulse Ox 97.9 F 65 18 111/69 97 08/19/17 08:59 08/19/17 08:59 08/19/17 08:59 08/19/17 08:59 08/19/17 08:59 - Medications Medications: Current Medications Albuterol/Ipratropium (Duoneb 3 Mg/0.5 Mg (3 Ml) Ud) 3 ml INH RQ6 PRN PRN Reason: Shortness of Breath Alprazolam (Xanax) 1 mg PO TID [facility] Last Admin: 08/18/17 17:22 Dose: 1 mg Duloxetine HCl (Cymbalta) 30 mg PO DAILY [facility] Last Admin: 08/19/17 08:21 Dose: 30 mg Gabapentin (Neurontin) 600 mg PO TID [facility] Last Admin: 08/19/17 08:21 Dose: 600 mg Ampicillin Sodium/Sulbactam (Sodium 1.5 gm/ Sodium Chloride) 100 mls @ 100 mls/ hr IVPB Q6 [facility] PRN Reason: Protocol Last Admin: 08/19/17 03:42 Dose: 100 mls/hr Vancomycin HCl 1 gm/ Sodium (Chloride) 250 mls @ 250 mls/hr IVPB Q12 [facility] PRN Reason: Protocol Last Admin: 08/19/17 08:28 Dose: 250 mls/hr Ibuprofen (Motrin Tab) 400 mg PO Q4 PRN PRN Reason: Pain, Mild (1-3) Ketorolac Tromethamine (Toradol) 15 mg IVP Q6 PRN PRN Reason: Pain, moderate (4-7) Morphine Sulfate (Morphine Extended Release Tab) 30 mg PO Q12 [facility] Last Admin: 08/18/17 20:21 Dose: 30 mg Morphine Sulfate (Morphine) 6 mg IVP Q4 PRN PRN Reason: Pain, severe (8-10) Last Admin: 08/19/17 08:20 Dose: 6 mg Ondansetron HCl (Zofran Inj) 4 mg IVP Q6 PRN PRN Reason: Nausea/Vomiting - Labs Labs: 08/19/17 05:30 08/19/17 05:30 PT 11.6 Seconds (9.8-13.1) 08/15/17 09:30 INR 1.0 (0.9-1.2) 08/15/17 09:30 APTT 28.3 Seconds (25.6-37.1) 08/15/17 09:30 Assessment and Plan - Assessment and Plan (Free Text) Plan: cont warm compresses, abx
[2017-08-19 07:57] LABS: HEMOGLOBIN 14.3 g/dL (12.0-16.0); MEAN CELL VOLUME 94.2 fl (81.0-99.0); MEAN CORPUSCULAR HEMOGLOBIN 32.3 pg (27.0-31.0); MEAN CORPUSCULAR HGB CONC 34.3 g/dL (33.0-37.0); RBC 4.42 Mil/uL (3.80-5.20); RED CELL DISTRIBUTION WIDTH 13.9 % (11.5-14.5); WHITE BLOOD COUNT 11.1 K/uL (4.8-10.8)
--- NOTE | 2017-08-19 09:20 | PN ---
DATE: 08/19/2017 SUBJECTIVE: The patient is seen and examined. Interim events noted. Consults noted and appreciated. Infectious disease and surgery followup and interventions noted and appreciated. The patient feels okay. There is significant pain mainly at the right elbow, I am not able to improved. PHYSICAL EXAMINATION: GENERAL: The patient is in no acute distress. VITAL SIGNS: Stable. HEART: S1 and S2, normal and regular. LUNGS: Good bilateral air exchange. ABDOMEN: Soft and nontender. EXTREMITIES: Both elbows less tender and less swollen. No sign of distal neurovascular compromise. No edema. No calf swelling. No tenderness. CENTRAL NERVOUS SYSTEM: Essentially unchanged. DIAGNOSTIC DATA: Available diagnostic data reviewed. MRI result is still pending. PLAN: Overall, the patient seemed to be slowly improving. Plan as ordered. Lele Menjivar MD
[2017-08-19] MEDS: Morphine 30 mg SR Tab PO SCH ×2 (09:54→20:26)
[2017-08-19] MEDS: oxyCODONE 5 mg Immediate Release Tab PO PRN (20:27)
[2017-08-20] MEDS: oxyCODONE 5 mg Immediate Release Tab PO PRN ×2 (01:04→06:33)
[2017-08-20 06:41] LABS: HEMOGLOBIN 13.9 g/dL (12.0-16.0); MEAN CELL VOLUME 94.5 fl (81.0-99.0); MEAN CORPUSCULAR HEMOGLOBIN 32.8 pg (27.0-31.0); MEAN CORPUSCULAR HGB CONC 34.7 g/dL (33.0-37.0); RBC 4.24 Mil/uL (3.80-5.20); WHITE BLOOD COUNT 11.4 K/uL (4.8-10.8)
--- NOTE | 2017-08-20 07:48 | CP.PCM.PN ---
<Griffin Ramos - Last Filed: 08/20/17 07:46> Subjective - Date & Time of Evaluation Date of Evaluation: 08/20/17 Time of Evaluation: 07:20 - Subjective Subjective: Patient seen and examined. Afebrile. No acute events over night. Objective - Vital Signs/Intake and Output Vital Signs (last 24 hours): Temp Pulse Resp BP Pulse Ox 98.2 F 80 18 103/67 97 08/19/17 16:23 08/19/17 16:23 08/19/17 16:23 08/19/17 16:23 08/19/17 16:23 - Medications Medications: Current Medications Albuterol/Ipratropium (Duoneb 3 Mg/0.5 Mg (3 Ml) Ud) 3 ml INH RQ6 PRN PRN Reason: Shortness of Breath Duloxetine HCl (Cymbalta) 30 mg PO DAILY [facility] Last Admin: 08/19/17 08:21 Dose: 30 mg Gabapentin (Neurontin) 600 mg PO TID [facility] Last Admin: 08/19/17 18:04 Dose: 600 mg Ampicillin Sodium/Sulbactam (Sodium 1.5 gm/ Sodium Chloride) 100 mls @ 100 mls/ hr IVPB Q6 [facility] PRN Reason: Protocol Last Admin: 08/20/17 04:49 Dose: 100 mls/hr Vancomycin HCl 1 gm/ Sodium (Chloride) 250 mls @ 250 mls/hr IVPB Q12 [facility] PRN Reason: Protocol Last Admin: 08/19/17 20:29 Dose: 250 mls/hr Ibuprofen (Motrin Tab) 400 mg PO Q4 PRN PRN Reason: Pain, Mild (1-3) Ketorolac Tromethamine (Toradol) 15 mg IVP Q6 PRN PRN Reason: Pain, moderate (4-7) Morphine Sulfate (Morphine Extended Release Tab) 30 mg PO Q12 [facility] Last Admin: 08/19/17 20:26 Dose: 30 mg Ondansetron HCl (Zofran Inj) 4 mg IVP Q6 PRN PRN Reason: Nausea/Vomiting Oxycodone HCl (Oxycodone Immediate Release Tab) 15 mg PO Q4 PRN PRN Reason: Pain, severe (8-10) Last Admin: 08/20/17 06:33 Dose: 15 mg - Labs Labs: 08/20/17 06:10 08/19/17 05:30 PT 11.6 Seconds (9.8-13.1) 08/15/17 09:30 INR 1.0 (0.9-1.2) 08/15/17 09:30 APTT 28.3 Seconds (25.6-37.1) 08/15/17 09:30 - Constitutional Appears: No Acute Distress - Head Exam Head Exam: NORMOCEPHALIC - Eye Exam Eye Exam: Normal appearance - ENT Exam ENT Exam: Mucous Membranes Moist - Respiratory Exam Respiratory Exam: NORMAL BREATHING PATTERN - Cardiovascular Exam Cardiovascular Exam: +S1, +S2 - GI/Abdominal Exam GI & Abdominal Exam: Soft - Extremities Exam Additional comments: b/l UE erythema and tenderness (improving) - Neurological Exam Neurological Exam: Alert, Awake, Oriented x3 - Psychiatric Exam Psychiatric exam: Normal Mood - Skin Skin Exam: Dry, Intact, Warm Assessment and Plan - Assessment and Plan (Free Text) Assessment: 31F with b/l UE cellulitis Plan: -C.w Abx per ID -C/w warm compresses -F/u AM labs Further recs per Dr. Harish STODDARD PGY2 <Bret Moreira - Last Filed: 08/20/17 10:27> Subjective - Date & Time of Evaluation Time of Evaluation: 09:35 - Subjective Subjective: Patient was seen and examined at the bedside. Agree with resident's note above. Objective - Vital Signs/Intake and Output Vital Signs (last 24 hours): Temp Pulse Resp BP Pulse Ox 98.9 F 82 20 131/73 99 08/20/17 08:09 08/20/17 08:09 08/20/17 08:09 08/20/17 08:09 08/20/17 08:09 - Medications Medications: Current Medications Albuterol/Ipratropium (Duoneb 3 Mg/0.5 Mg (3 Ml) Ud) 3 ml INH RQ6 PRN PRN Reason: Shortness of Breath Duloxetine HCl (Cymbalta) 30 mg PO DAILY [facility] Last Admin: 08/20/17 09:20 Dose: 30 mg Gabapentin (Neurontin) 600 mg PO TID [facility] Last Admin: 08/20/17 09:19 Dose: 600 mg Ampicillin Sodium/Sulbactam (Sodium 1.5 gm/ Sodium Chloride) 100 mls @ 100 mls/ hr IVPB Q6 [facility] PRN Reason: Protocol Last Admin: 08/20/17 09:21 Dose: 100 mls/hr Vancomycin HCl 1 gm/ Sodium (Chloride) 250 mls @ 250 mls/hr IVPB Q12 [facility] PRN Reason: Protocol Last Admin: 08/20/17 09:22 Dose: 250 mls/hr Ibuprofen (Motrin Tab) 400 mg PO Q4 PRN PRN Reason: Pain, Mild (1-3) Ketorolac Tromethamine (Toradol) 15 mg IVP Q6 PRN PRN Reason: Pain, moderate (4-7) Morphine Sulfate (Morphine Extended Release Tab) 30 mg PO Q12 [facility] Last Admin: 08/20/17 09:26 Dose: 30 mg Ondansetron HCl (Zofran Inj) 4 mg IVP Q6 PRN PRN Reason: Nausea/Vomiting Oxycodone HCl (Oxycodone Immediate Release Tab) 15 mg PO Q4 PRN PRN Reason: Pain, severe (8-10) Last Admin: 08/20/17 06:33 Dose: 15 mg - Labs Labs: 08/20/17 06:10 08/19/17 05:30 PT 11.6 Seconds (9.8-13.1) 08/15/17 09:30 INR 1.0 (0.9-1.2) 08/15/17 09:30 APTT 28.3 Seconds (25.6-37.1) 08/15/17 09:30 Assessment and Plan - Assessment and Plan (Free Text) Plan: - No general surgery intervention at present time - general surgery will sign off - Continue care as per medical team - Please re-consult as needed
[2017-08-20 08:10] VITALS: BP 131/73; PULSE 82; RESP 20; TEMP 98.9; O2SAT 99
--- NOTE | 2017-08-20 08:51 | PN ---
DATE: 08/18/2017 SUBJECTIVE: The patient is seen and examined. Interim events noted. The patient had MRI done. It was discussed with wellfield technician, the patient could not do both arm yesterday. One arm was done and another arm attempted today. The patient still complaints feeling of arm pain, also has chronic pain requiring narcotic. No new complaint of chest pain or shortness of breath. PHYSICAL EXAMINATION: GENERAL: The patient is in no acute distress. VITAL SIGNS: Stable. HEART: S1 and S2, normal and regular. LUNGS: Good bilateral air exchange. ABDOMEN: Soft and nontender. EXTREMITIES: The patient still has bilateral elbow palpable subcutaneous like fashion. No edema. No calf swelling. No tenderness. No acute ischemia. No sign of acute distal neurovascular compromise. CENTRAL NERVOUS SYSTEM: Exam is essentially unchanged. DIAGNOSTIC DATA: Available diagnostic data reviewed. MRI official report is pending and reviewed, the rest has some subcutaneous enhancement, we will await official response. ASSESSMENT AND PLAN: Infectious Diseases consult noted and appreciated. Plan as ordered. Lele Menjivar MD
[2017-08-20] MEDS: Morphine 30 mg SR Tab PO SCH (09:26)
--- NOTE | 2017-08-20 09:27 | PN ---
DATE: 08/20/2017 SUBJECTIVE: The patient is seen and examined. Interim events noted. The patient remains in regular medical floor. Feels okay. Denies any chest pain or shortness of breath. PHYSICAL EXAMINATION: GENERAL: The patient is in no acute distress. VITAL SIGNS: Stable. HEART: S1 and S2, normal and regular. LUNGS: Good bilateral air exchange. ABDOMEN: Soft and nontender. EXTREMITIES: The patient has both elbow better. The patient is able to extend right elbow with . No edema. No calf swelling. No tenderness. No acute ischemia. CENTRAL NERVOUS SYSTEM: Essentially unchanged. DIAGNOSTIC DATA: Available diagnostic data reviewed. MRI report is pending. PLAN: As ordered. Lele Menjivar MD
--- NOTE | 2017-08-20 11:16 | US ---
PROCEDURE: Bilateral Upper Extremity Venous Doppler HISTORY: R/O DVT COMPARISON: None available. TECHNIQUE: Lateral extremity deep veins, including the lower internal jugular, subclavian, axillary and brachial veins, were evaluated flow, compressibility and respiratory phasicity. FINDINGS: Normal flow seen in left internal jugular veins, subclavian, axillary and brachial as well as basilic, ulnar and radial veins. . . Apparent partial chronic thrombosis right jugular vein. Wall thickening right cephalic vein at the level of the antecubital fossa. There is also focal area of noncompressibility left cephalic vein at the antecubital fossa possibly representing superficial thrombophlebitis IMPRESSION: There is partial chronic appearing thrombosis right internal jugular vein t.. Wall thickening right cephalic vein at the elbow exhibits wall thickening. There is focal area of noncompressibility left cephalic vein likely representing superficial likely representing thrombophlebitis
--- NOTE | 2017-08-20 12:01 | CP.PCM.PN ---
Subjective - Date & Time of Evaluation Date of Evaluation: 08/20/17 Time of Evaluation: 09:00 - Subjective Subjective: no fever less swelling all cultures neg nothing to drain as pper surg d/c on PO rx Objective - Vital Signs/Intake and Output Vital Signs (last 24 hours): Temp Pulse Resp BP Pulse Ox 98.9 F 82 20 131/73 99 08/20/17 08:09 08/20/17 08:09 08/20/17 08:09 08/20/17 08:09 08/20/17 08:09 - Medications Medications: Current Medications Albuterol/Ipratropium (Duoneb 3 Mg/0.5 Mg (3 Ml) Ud) 3 ml INH RQ6 PRN PRN Reason: Shortness of Breath Alprazolam (Xanax) 1 mg PO TID [facility] Duloxetine HCl (Cymbalta) 30 mg PO DAILY [facility] Last Admin: 08/20/17 09:20 Dose: 30 mg Gabapentin (Neurontin) 600 mg PO TID [facility] Last Admin: 08/20/17 09:19 Dose: 600 mg Ampicillin Sodium/Sulbactam (Sodium 1.5 gm/ Sodium Chloride) 100 mls @ 100 mls/ hr IVPB Q6 [facility] PRN Reason: Protocol Last Admin: 08/20/17 09:21 Dose: 100 mls/hr Vancomycin HCl 1 gm/ Sodium (Chloride) 250 mls @ 250 mls/hr IVPB Q12 [facility] PRN Reason: Protocol Last Admin: 08/20/17 09:22 Dose: 250 mls/hr Ibuprofen (Motrin Tab) 400 mg PO Q4 PRN PRN Reason: Pain, Mild (1-3) Ketorolac Tromethamine (Toradol) 15 mg IVP Q6 PRN PRN Reason: Pain, moderate (4-7) Morphine Sulfate (Morphine Extended Release Tab) 30 mg PO Q12 [facility] Last Admin: 08/20/17 09:26 Dose: 30 mg Ondansetron HCl (Zofran Inj) 4 mg IVP Q6 PRN PRN Reason: Nausea/Vomiting Oxycodone HCl (Oxycodone Immediate Release Tab) 15 mg PO Q4 PRN PRN Reason: Pain, severe (8-10) Last Admin: 08/20/17 06:33 Dose: 15 mg - Labs Labs: 08/20/17 06:10 08/19/17 05:30 PT 11.6 Seconds (9.8-13.1) 08/15/17 09:30 INR 1.0 (0.9-1.2) 08/15/17 09:30 APTT 28.3 Seconds (25.6-37.1) 08/15/17 09:30 - Constitutional Appears: Non-toxic, Chronically Ill - Head Exam Head Exam: NORMOCEPHALIC - Eye Exam Eye Exam: PERRL - ENT Exam ENT Exam: Mucous Membranes Dry - Neck Exam Neck Exam: absent: Lymphadenopathy - Respiratory Exam Respiratory Exam: Decreased Breath Sounds - Cardiovascular Exam Cardiovascular Exam: REGULAR RHYTHM - GI/Abdominal Exam GI & Abdominal Exam: Distended, Soft - Rectal Exam Rectal Exam: Deferred - Exam Exam: NORMAL INSPECTION - Extremities Exam Extremities Exam: absent: Pedal Edema - Back Exam Back Exam: absent: CVA tenderness (L), CVA tenderness (R) - Neurological Exam Neurological Exam: Alert, Awake, Oriented x3 Assessment and Plan (1) Cellulitis of arm Status: Acute
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
== END 2017-08-20 15:40 | disposition home or self-care (01) | DRG 872 ==
LOC: H.ER 13:21 → H.ERHOLD 18:25 → H.MEDSURG1 20:33
PROVIDERS: ADMIT Internal Medicine; ATTEND Internal Medicine
DX: A41.9 Sepsis, unspecified organism (principal); L03.114 Cellulitis of left upper limb; L03.113 Cellulitis of right upper limb; I80.8 Phlebitis and thrombophlebitis of other sites; G89.29 Other chronic pain; L52 Erythema nodosum; J45.909 Unspecified asthma, uncomplicated; F41.9 Anxiety disorder, unspecified; M54.2 Cervicalgia; Z76.5 Malingerer [conscious simulation]; Z79.891 Long term (current) use of opiate analgesic; Z87.442 Personal history of urinary calculi

== ENCOUNTER 2017-12-28 15:33 | Inpatient (IN) | payer BC, MEDICAID ==
[2017-12-28 15:33] VITALS: BMI 23.3
--- NOTE | 2017-12-28 16:09 | ED PDOC ---
HPI: Psych/Substance Abuse Time Seen by Provider: 12/28/17 15:49 Chief Complaint (Nursing): Psychiatric Evaluation Chief Complaint (Provider): suicidal ideation and intoxication ED Caveat: Intoxicated, Uncooperative History Per: Patient, EMS, Family History/Exam Limitations: intoxication Additional Complaint(s): Father reports that patient's mother 2 days ago and patient has been drinking and using heroin since then and reporting that she wants to . She denies suicidal ideation. However, had been heard in ER saying that "I want to ." Admits to h/o psych and drug abuse. Past Medical History Reviewed: Historical Data, Nursing Documentation, Vital Signs Vital Signs: Last Vital Signs Temp 98.0 F 12/28/17 15:36 Pulse 99 H 12/28/17 15:36 Resp 16 12/28/17 15:36 BP 128/59 L 12/28/17 15:36 Pulse Ox 98 12/28/17 15:36 - Medical History PMH: Anemia, Anxiety, Asthma, Back Problems, Bipolar Disorder, COPD, Depression , Kidney Stones, Chronic Kidney Disease (kidney stones), Chronic Pain Denies: Diabetes, Hepatitis, HIV, HTN, Seizures, Sexually Transmitted Disease - Surgical History Surgical History: Cholecystectomy - Family History Family History: States: Unknown Family Hx, Hypertension - Social History Current smoker - smoking cessation education provided: Yes Drugs: Opiates, Other (benzos) - Immunization History Hx Tetanus Toxoid Vaccination: No Hx Influenza Vaccination: No Hx Pneumococcal Vaccination: No - Home Medications Home Medications: Ambulatory Orders Medication Instructions Recorded ALPRAZolam [Xanax] 1 mg PO TID 11/05/17 Albuterol HFA [Ventolin HFA 90 2 puff IH [id number] PRN 11/05/17 mcg/actuation (8 g)] Meloxicam [Mobic] 7.5 mg PO BID 11/05/17 Tizanidine HCl [Zanaflex Capsule] 4 mg PO BID 11/05/17 oxyCODONE [oxyCODONE Immediate 30 mg PO TID 11/05/17 Release Tab] Gabapentin [Neurontin] 600 mg PO TID #90 cap 11/12/17 QUEtiapine [Seroquel] 100 mg PO HS #30 tab 11/12/17 Sertraline [Zoloft] 100 mg PO DAILY #30 tab 11/12/17 traZODone [Desyrel] 50 mg PO HS #30 tab 11/12/17 - Allergies Allergies/Adverse Reactions: Allergies Allergy/AdvReac Type Severity Reaction Status Date / Time No Known Allergies Allergy Verified 12/28/17 15:36 Review of Systems ROS Statement: Except As Marked, All Systems Reviewed And Found Negative (but may be unreliable due to intoxication and lack of cooperation) Psych: Positive for: Depression, Suicidal ideation (denies but father reports) Physical Exam - Reviewed Nursing Documentation Reviewed: Yes Vital Signs Reviewed: Yes - Physical Exam Appears: Positive for: In Acute Distress (acute emotional distress) Head Exam: Positive for: ATRAUMATIC, NORMOCEPHALIC Skin: Positive for: Warm, Dry Eye Exam: Positive for: EOMI, PERRL ENT: Positive for: Pharynx Is (clear) Neck: Positive for: Painless ROM, Decreased ROM Cardiovascular/Chest: Positive for: Regular Rate, Rhythm. Negative for: Murmur Respiratory: Positive for: Normal Breath Sounds. Negative for: Respiratory Distress Gastrointestinal/Abdominal: Positive for: Soft. Negative for: Tenderness Back: Positive for: Normal Inspection. Negative for: Decreased ROM Extremity: Positive for: Normal ROM. Negative for: Deformity Lymphatic: Negative for: Adenopathy Neurologic/Psych: Positive for: Alert, Mood/Affect (depressed mood, anxious and agitated affect), Gait (mildly unsteady). Negative for: Motor/Sensory Deficits , Aphasia - Laboratory Results Result Diagrams: 12/28/17 16:29 12/28/17 16:29 - ECG O2 Sat by Pulse Oximetry: 98 Pulse Ox Interpretation: Normal - Progress ED Course And Treament: Threatening to leave shortly after arrival. Unable to redirect, starting to yell and scream in ER. Pt needs medication for severe grief with psychosis or substance-induced psychosis. 1630 Pt sleeping deeply after medication. 1800 Labs demonstrate UDS cocaine, benzo and opiates. Also elevate BAL. No other clinically significant abnormalities. Pt continues to sleep comfortably. Arousable to voice but still very lethargic. Pending crisis evaluation. 2000 Pt wheezing. Albuterol ordered. Crisis evaluation in progress 2030 Pt to be screened by [facility] for involuntary psychiatric admission. Wheezing improved. Pt is medically stable for psychiatric admission. 2300 On reevaluation by pt agreeable to voluntarily signin to this hospital. Stable for hospitalization. - Critical Care Total Time (In Min): 30 Documented Critical Care: Time excludes all time spent performint seperately billable procedures Disposition - Clinical Impression Clinical Impression: Polysubstance abuse, Grief reaction Counseled Patient/Family Regarding: Studies Performed, Diagnosis - Disposition Disposition Time: 23:00 Condition: STABLE - Pt Status Changed To: Hospital Disposition Of: Inpatient - Admit Certification Admit to Inpatient:: After my assessment, the patient will require hospitalization for at least two midnights. This is because of the severity of symptoms shown, intensity of services needed, and/or the medical risk in this patient being treated as an outpatient. - POA Present On Arrival: None
[2017-12-28 16:33] LABS: BASO # 0.1 K/uL (0.0-0.2); BASO % 0.8 % (0.0-2.0); EOS # 0.5 K/uL (0.0-0.7); EOS % 4.4 % (0.0-4.0); HEMOGLOBIN 13.8 g/dL (12.0-16.0); LYMPH # 2.2 K/uL (1.0-4.3); LYMPH % 18.4 % (20.0-40.0); MEAN CELL VOLUME 92.7 fl (81.0-99.0); MEAN CORPUSCULAR HGB CONC 33.5 g/dL (33.0-37.0); MEAN PLATELET VOLUME 7.7 fl (7.2-11.7); MONO # 0.7 K/uL (0.0-0.8); MONO % 5.6 % (0.0-10.0); NEUT # 8.5 K/uL (1.8-7.0); NEUT % 70.8 % (50.0-75.0); RBC 4.46 Mil/uL (3.80-5.20); RED CELL DISTRIBUTION WIDTH 13.8 % (11.5-14.5)
[2017-12-28 16:48] LABS: ACETAMINOPHEN < 10.0 ug/ml (10.0-30.0); ALB/GLOB RATIO 1.1 (1.0-2.1); ALBUMIN 4.1 g/dL (3.5-5.0); ALT/SGPT 25 U/L (9-52); AST/SGOT 23 U/L (14-36); BLOOD UREA NITROGEN 7 mg/dl (7-17); CALCIUM 9.2 mg/dL (8.4-10.2); GFR NON-AFRICAN AMERICAN > 60; SALICYLATE < 1.0 mg/dl
[2017-12-28 16:55] LABS: BARBITURATES, UR NEGATIVE (NEGATIVE); BENZODIAZEPINES, UR POSITIVE (NEGATIVE); OPIATES, UR POSITIVE (NEGATIVE); PHENCYCLIDINE, UR NEGATIVE (NEGATIVE)
[2017-12-28] MEDS ORDERED: Albuterol 0.083% Inhal Sol (2.5 mg/3 mL) UD IH STA (19:55)
[2017-12-28] MEDS ORDERED: Albuterol-Ipratrop 3 mg / 0.5 (3 ml) UD INH STA (23:00)
[2017-12-29] MEDS ORDERED: Magnesium Hydroxide Susp 30 ml UD PO PRN (01:08)
[2017-12-29] MEDS ORDERED: DiphenhydrAMINE 50 mg/ml Inj IM PRN (01:08)
[2017-12-29] MEDS ORDERED: Alum-Mag Hydrox-Simethicone Susp (30 mL) PO PRN (01:08)
--- NOTE | 2017-12-29 01:54 | PCM.BM ---
<Brenda Frost - Last Filed: 12/29/17 01:52> Treatment assets and liabiliti Patient Assests: adapts well, cooperative, educated, ADL independent, physically healthy, negotiates basic needs, cognitively intact Patient Liabilities: relationship conflicts, substance abuse - Milieu Protocol Maintain good personal hygiene: daily Encourage regular showers, other Remind patient to perform daily oral care Conduct patient checks and document Observation sheet: Q15 minutes Maintain personal safety: daily Educate patient to report safety concerns to staff, every shift Monitor environment for contraband/sharps Medication safety: Monitor for expected outcome, potential side effects: every shift, Assess barriers to learning: other (as needed), Assess readiness for medication education: other (as needed) <Maia Gross - Last Filed: 01/02/18 19:20> - Diagnosis (1) Polysubstance abuse Status: Acute Interventions: motivational therapy 01/02/18 19:21 <Taisha Turcios - Last Filed: 01/03/18 14:52> Treatment assets and liabiliti Patient Assests: resourceful, self-reliant, good support system Patient Liabilities: physical pain, medical problems Family Contact Family involvement: Family/SO is involved Family contact: Patient agrees to contact, Family has been contacted by patient, Telephone contact initiated by staff Family contact name: father (Magnus [phone]) Family contacted how many times per week?: 2 Family contact comment: Door Liner Helper placed call to patients father (Magnus [phone]) to discuss pts progress on 3NP, anticipated discharge of 01/02 and aftercare. Door Liner Helper provided clinical updates regarding patients progress. Door Liner Helper provided psychoeducation regarding risks of continued polysubstance abuse and emphasized importance of adherence with aftercare to improve insight, develop coping skills and ensure safety in the community. Pts father expressed understanding of the above and inquired why it was necessary for [facility] to be contacted. Door Liner Helper encouraged pts father to use [facility]CP[employer]P as a resource for additional community linkages and support during patients mourning process. Pts father expressed understanding and reported being motivated to provide patient with all support and encouragement necessary. Pts father denied having concerns regarding pts upcoming discharge or return home. Door Liner Helper to contact pts father on 01/02 to finalize discharge. . Initialized on 01/01/18 16:45 - END OF NOTE - Goals for Treatment Patient goals for treatment: Patient to continue stabilization on 3NP through medication management and group/supportive therapy to address sxs of depression and eliminate SI.. Patient to be encouraged to attend groups regularly to promote self-awareness, sobriety, and improve insight, compliance, coping skills and self-esteem. Patient to be provided with referral for appropriate level of aftercare to reduce risk of future hospitalizations and ensure safety in the community. Discharge/Continuing Care - Education Needs Education Needs: Family Medication, Family Diagnosis/Disease Process, Family Coping Skills, Family Anger Management skills, Family Community resources, Family Aftercare Safety Plan, Patient Medication, Patient Diagnosis/Disease Process, Patient Coping Skills, Patient Anger Management skills, Patient Community resources, Patient Aftercare Safety Plan - Discharge Discharge Criteria: Tolerates medication w/o severe side effects, Free of Suicidal thoughts, Normal sleep pattern, Ability to care for self, No longer exhibiting s/s of withdrawal Discharge to:: Home, With Family, Other (OPS) - Treatment Team Participation Patient/Family/SO Statement: 01/03/18 14:51 LATE NOTE for tx team on 12/31: Pt. AOX4 with broad affect and fair eye contact. Thoughts are clear and connected. Speech: normal rate and tone. Patient tidy with good ADLs. Pt. guarded and evasive when discussing precursors to admission and providing collateral. Pt. presented with poor insight into precursors to hospitalization, illness and need for tx. Coping skills/Judgment impaired. Pt. continues to minimize substance abuse. Pt. withdrawn and isolative on 3NP. Pt denies SI/HI and is able to contract for safety on 3NP. Pt. denies AH/VH. Pt. has signed a 48 hour notice expiring on 01/02. Pt. to remain on 3NP for further stabilization through medication management and group/supportive therapy. Pt. to be provided with referral for appropriate level of aftercare. Pt. agreeable to referrals to [facility] and [facility]. Discussed with Family/SO: Yes Was Patient/Family/SO present at Treatment Team Meeting: Yes
[2017-12-29] MEDS ORDERED: Albuterol 0.083% Inhal Sol (2.5 mg/3 mL) UD INH STA (05:41)
[2017-12-29] MEDS ORDERED: Albuterol 0.083% Inhal Sol (2.5 mg/3 mL) UD INH PRN (05:44)
[2017-12-29 08:46] LABS: T4 8.85 ug/dl (5.5-11.0)
[2017-12-29] MEDS: Albuterol 0.083% Inhal Sol (2.5 mg/3 mL) UD INH SCH ×3 (09:02→19:31)
--- NOTE | 2017-12-29 09:51 | RAD ---
Date of service: 12/28/2017 HISTORY: possible psych transfer COMPARISON: No prior. FINDINGS: LUNGS: No active pulmonary disease. PLEURA: No significant pleural effusion identified, no pneumothorax apparent. CARDIOVASCULAR: Normal. OSSEOUS STRUCTURES: No significant abnormalities. VISUALIZED UPPER ABDOMEN: Normal. OTHER FINDINGS: None. IMPRESSION: No active disease.
--- NOTE | 2017-12-29 10:49 | CARD ---
APPROVED REPORT Date of service: 12/28/2017 <Conclusion> Normal sinus rhythm Normal ECG
--- NOTE | 2017-12-29 12:02 | PCM.PSYCH ---
Initial Psychiatric Evaluation - Initial Psychiatric Evaluation Type of Admission: Voluntary Legal Status: Capacity Chief Complaint (in patient's own words): "I'm depressed." Patient's Reaction to Hospitalization: HPI: 32 yo female w/ h/o Depression, Opiate, Cocaine, Benzo and Alcohol Abuse as per records, not cooperative w/ interview, states that she came to the hospital because her father called the police on her. The patient reports that she feels depressed due to the recent of her mother. She denies drug /alcohol use despite +Utox and records indicating that she has a history of substance abuse. She denies AH/VH/SI/HI and is not currently agreeable to treatment with psychotropic medications. She reports poor sleep and appetite. PPHx: Patient denies all past psychiatric history, but as per records, patient has a history of inpatient treatments and detox; most recently at [facility] in November 2017, where she was treated w/ Neurontin, Seroquel, Zoloft and Trazodone. She denies this and denies taking any psychiatric medications. PMHx: Ovarian Cysts, Kidney Stones, Asthma ALL: NKDA SHx: Lives; denies drug/etoh/cig use; but patient clearly has a history of opiate, cocaine, benzo and alcohol abuse Current Medications: Active Medications Generic Name Dose Route Start Last Admin Trade Name Freq PRN Reason Stop Dose Admin Acetaminophen 650 mg 12/29/17 01:08 Tylenol 325mg Tab PO Q4 PRN Pain, moderate (4-7) Al Hydrox/Mg Hydrox/Simethicone 30 ml 12/29/17 01:08 Maalox Plus 30 Ml PO Q4 PRN Dyspepsia Albuterol Sulfate 2.5 mg 12/29/17 08:00 12/29/17 09:02 Albuterol 0.083% Inhal Bianka (2.5 Mg/3 Ml) Ud INH Not Given RQ6 CHANTEL Albuterol Sulfate 2.5 mg 12/29/17 05:44 Albuterol 0.083% Inhal Bianka (2.5 Mg/3 Ml) Ud INH RQ2 PRN Shortness of Breath Diphenhydramine HCl 50 mg 12/29/17 01:08 Benadryl IM Q6 PRN Extrapyramidal S/S Unable PO Diphenhydramine HCl 50 mg 12/29/17 01:08 12/29/17 05:17 Benadryl PO 50 mg Q6 PRN Administration Extrapyramidal Symptoms Diphenhydramine HCl 50 mg 12/29/17 01:12 Benadryl PO HS PRN Sleep Gabapentin 600 mg 12/29/17 09:00 Neurontin PO TID CHANTEL Haloperidol 5 mg 12/29/17 01:08 Haldol PO Q4 PRN Agitation Haloperidol Lactate 5 mg 12/29/17 01:08 Haldol IM Q4 PRN Agitation, Unable to Take PO Lorazepam 1 mg 12/29/17 02:23 Ativan PO Q4 PRN Anxiety/Agitation Magnesium Hydroxide 30 ml 12/29/17 01:08 Milk Of Magnesia PO HS PRN Constipation Trazodone HCl 50 mg 12/29/17 11:56 Desyrel PO HS PRN Sleep Past Psychiatric History - Past Psychiatric History Previous Treatment History: Inpatient Pertinent Medical Hx (Current Medical&Sleep Prob, Allergies): Allergies Allergy/AdvReac Type Severity Reaction Status Date / Time No Known Allergies Allergy Verified 12/28/17 15:36 ALPRAZolam [Xanax] 1 mg PO TID 11/05/17 Albuterol HFA [Ventolin HFA 90 mcg/actuation (8 g)] 2 puff IH [id number] PRN Meloxicam [Mobic] 7.5 mg PO BID 11/05/17 Tizanidine HCl [Zanaflex Capsule] 4 mg PO BID 11/05/17 oxyCODONE [oxyCODONE Immediate Release Tab] 30 mg PO TID 11/05/17 Gabapentin [Neurontin] 600 mg PO TID #90 cap 11/12/17 QUEtiapine [Seroquel] 100 mg PO HS #30 tab 11/12/17 Sertraline [Zoloft] 100 mg PO DAILY #30 tab 11/12/17 traZODone [Desyrel] 50 mg PO HS #30 tab 11/12/17 Review of Systems - Psychiatric Psychiatric: As Per HPI, Abnormal Sleep Pattern, Anxiety, Change in Appetite, Depression, Difficulty Concentrating Mental Status Examination - Personal Presentation Personal Presentation: Looks older than stated age - Affect Affect: Constricted - Motor Activity Motor Activity: Calm - Reliability in Providing Information Reliability in Providing Information: Other (Poor, not cooperative with interview) - Speech Speech: Organized - Mood Mood: Depressed - Formal Thought Process Formal Thought Process: No Impairment - Hallucinations/Delusions Additional comments: Denies AH/VH/paranoia/delusions - Obsessions/Compulsions Obsessions: No Compulsions: No - Cognitive Functions Orientation: Person, Place, Situation, Time Sensorium: Alert Attention/Concentration: Attentive Estimate of Intelligence: Average Judgement: Imparied, as evidence by: Poor judgement, Imparied, as evidence by: Lack of insight into illness Memory: Recent intact, as evidence by: Other (Memory likely intact; but patient is unwilling to give any information) - Risk Risk: Diminished functioning - Strength & Assets Inventory Strength & Assets Inventory: Family support - Limitations Limitations: Living alone DSM 5 DX - DSM 5 DSM 5 Diagnosis: Substance Induced Mood Disorder; Opiate/Cocaine/Alcohol Use Disorders - Recommended/Plan of Treatment Treatment Recommendations and Plan of Treatment: Substance Induced Mood Disorder; Opiate/Cocaine/Alcohol Use Disorders -Admit to psychiatry unit -PRNs for opioid withdrawal symptoms -PRN Ativan if patient has ETOH withdrawal symptoms -Patient is not agreeable to treatment with any psychiatric medications at this time -Individual and group therapy -Psychoeducation -Disposition planning Discharge Plan and Discharge Criteria: Discharge when patient is psychiatrically stable - Smoking Cessation Smoking Cessation Initiated: No Reason for not providing: Patient declined
[2017-12-29] MEDS ORDERED: Albuterol 0.042% Inhal Sol (1.25 mg/3 mL) UD INH PRN (23:41)
[2017-12-30] MEDS: Albuterol 0.083% Inhal Sol (2.5 mg/3 mL) UD INH SCH ×5 (02:00→20:45)
--- NOTE | 2017-12-30 03:21 | CON ---
DATE: 12/29/2017 INITIAL CONSULTATION HISTORY OF PRESENT ILLNESS: This is a 32-year-old female with history of bronchial asthma who was admitted to [facility]. Medical consultation was called for medical followup. The patient denied to have any shortness of breath or wheezing at this time. On admission, the patient was given albuterol nebulizer treatment in the emergency room. All other review of system is negative. ALLERGY: NO KNOWN ALLERGY. MEDICATIONS: Reviewed and albuterol was ordered. FAMILY HISTORY: Not contributory. PAST MEDICAL HISTORY: Bronchial asthma. SOCIAL HISTORY: Positive for smoking for many years, and the patient has history of both alcohol and substance abuse. PHYSICAL EXAMINATION: GENERAL: Not in any cardiopulmonary distress. VITAL SIGNS: Blood pressure 110/69, temperature 98.1, respiratory rate 18, and pulse 78. HEENT: Pupils equal and reactive to light. Normal-appearing mucosa of the conjunctivae, oropharynx, and nasal membrane mucosa. NECK: Supple. No JVD. No carotid bruit. No lymph node. No thyromegaly. CHEST AND LUNGS: Bilateral symmetrical expansion. Good air exchange. No rales. No rhonchi. CARDIOVASCULAR SYSTEM: PMI not localized. S1 and S2. No additional sounds. ABDOMEN: Normoactive bowel sounds. No tenderness. No organomegaly. No masses. EXTREMITIES: No cyanosis, no clubbing, no edema. DELIVERER OUTSIDE: Alert, awake, and oriented x2. No neurological deficit could be appreciated. ASSESSMENT: 1. History of bronchial asthma, 2. Substance abuse. PLAN: Monitor the patient for any withdrawal symptoms. Also, we will order albuterol by metered dose inhaler to be given as needed. Sophia Hayes MD
--- NOTE | 2017-12-30 08:34 | PCM.PYCHPN ---
Psychiatric Progress Note - Psychiatric Progress Note Patient seen today, length of contact: Pt evaluated, case discussed w/ team, chart reviewed Patient Chief Complaint: "I'm depressed." Problems Identified/Issues Discussed: Patient continues to have constricted, depressed affect. She continues to be guarded and withholding of information. She continues to deny any drug use and denies drug/etoh withdrawal symptoms. She denies AH/VH/SI/HI. She continues to refuse psychiatric medications. Medication Change: No Medical Record Reviewed: Yes Consults ordered or reviewed: Medicine consult Mental Status Examination - Cognitive Function Orientation: Person, Place, Situation, Time Memory: Intact Attention: WNL Concentration: WNL Association: WNL Fund of Knowledge: [facility] Decription of patient's judgement and insights: Poor I/J - Mood Mood: Depressed - Affect Affect: Constricted - Speech Speech: Soft - Formal Thought Process Formal Thought Process: No Impairment Psychotic Thoughts and Behaviors: Denies AH/VH/paranoia/delusions - Suicidal Ideation Suicidal Ideation: No - Homicidal Ideation Homicidal Ideation: No Goal/Treatment Plan - Goal/Treatment Plan Need for Continued Stay: Remain at risks for inpatient hospitalization, Severe depression anxiety, Discharge may exacerbated symptoms Progress Toward Problem(s) and Goals/Treatment Plan: Substance Induced Mood Disorder; Opiate/Cocaine/Alcohol Use Disorders -PRNs for opioid withdrawal symptoms -PRN Ativan if patient has ETOH withdrawal symptoms; patient currently denies symptoms of ETOH withdrawal -Patient is not agreeable to treatment with any psychiatric medications at this time, will continue to observe for safety -Individual and group therapy -Psychoeducation -Disposition planning
[2017-12-30 16:39] VITALS: O2SAT 98
[2017-12-31] MEDS: Albuterol 0.083% Inhal Sol (2.5 mg/3 mL) UD INH SCH ×5 (02:00→20:52)
--- NOTE | 2017-12-31 15:30 | PCM.PYCHPN ---
Psychiatric Progress Note - Psychiatric Progress Note Patient seen today, length of contact: Pt evaluated, case discussed w/ team, chart reviewed Patient Chief Complaint: I need to leave, Problems Identified/Issues Discussed: pt evaluated with treatment team, treatment plan discussed with father upon patient consent pt presenting with anxious and depressed mood, reported poor sleep and poor appetite, pt stated she has been injecting heroin and cocaine, and abusing alcohol ,pt minimizing her substance use and has limited insight into illness requesting to be discharged, motivational therapy provided , discussed with pt the effect of substance use on current mental status , discussed the need to be linked to outpatient [facility] program discussed starting remeron for depression, poor sleep and poor appetite discussed with pt that foster care social worker would be contacting division of child protection to ensure safety of her 7ys old child encouraged pt tp attend groups and participate in treatment pt denied any current suicidal or homicidal ideation, denied perceptual disturbances DSM 5 Symptoms Update: adjustment disorder with mixed depression and anxiety bereavement substance induced mood disorder polysubstance use Medication Change: Yes (start remeron) Medical Record Reviewed: Yes Mental Status Examination - Cognitive Function Orientation: Person, Place, Situation, Time Memory: Intact Attention: WNL Concentration: WNL Association: WNL Fund of Knowledge: WNL - Mood Mood: Depressed, Anxious - Affect Affect: Constricted - Speech Speech: Soft - Formal Thought Process Formal Thought Process: No Impairment Psychotic Thoughts and Behaviors: pt denied psychotic symptoms, non elicited - Suicidal Ideation Suicidal Ideation: No - Homicidal Ideation Homicidal Ideation: No Goal/Treatment Plan - Goal/Treatment Plan Need for Continued Stay: Remain at risks for inpatient hospitalization, Severe depression anxiety, Discharge may exacerbated symptoms Progress Toward Problem(s) and Goals/Treatment Plan: continue with clonidine protocol continue with neurontin 600mg tid remeron 7.5mg qhs increase gradually CBT , motivational and group therapy
[2017-12-31 17:31] VITALS: RESP 18
[2018-01-01] MEDS: Albuterol 0.083% Inhal Sol (2.5 mg/3 mL) UD INH SCH ×3 (02:36→19:50)
--- NOTE | 2018-01-01 14:50 | PCM.PYCHPN ---
Psychiatric Progress Note - Psychiatric Progress Note Patient seen today, length of contact: Pt evaluated, case discussed w/ team, chart reviewed Patient Chief Complaint: I need pain medications Problems Identified/Issues Discussed: pt evaluated with treatment team, treatment plan discussed with father upon patient consent pt presenting with anxious and depressed mood, reported poor sleep and poor appetite, pt stated she has been injecting heroin and cocaine, and abusing alcohol ,pt minimizing her substance use and has limited insight into illness requesting to be discharged, motivational therapy provided , discussed with pt the effect of substance use on current mental status , discussed the need to be linked to outpatient [facility] program discussed starting remeron for depression, poor sleep and poor appetite discussed with pt that social science professor would be contacting division of child protection to ensure safety of her 7ys old child encouraged pt tp attend groups and participate in treatment pt denied any current suicidal or homicidal ideation, denied perceptual disturbances DSM 5 Symptoms Update: pt on evaluation continues to request pain medications and benzodiazepines, minimizing her current substance use disorder with limited insight into illness motivational therapy provided, discussing with patient effect of substance use on current mental and social status encouraged pt to attend groups, pt continues to report decreased sleep with early insomnia and poor appetite, discussed increasing remeron pt denied any current thoughts of self harm, denied perceptual disturbances Medication Change: Yes (increase remeron) Medical Record Reviewed: Yes Mental Status Examination - Cognitive Function Orientation: Person, Place, Situation, Time Memory: Intact Attention: WNL Concentration: WNL Association: WNL Fund of Knowledge: WNL - Mood Mood: Depressed, Anxious - Affect Affect: Constricted - Speech Speech: Soft - Formal Thought Process Formal Thought Process: No Impairment Psychotic Thoughts and Behaviors: pt denied psychotic symptoms, non elicited - Suicidal Ideation Suicidal Ideation: No - Homicidal Ideation Homicidal Ideation: No Goal/Treatment Plan - Goal/Treatment Plan Need for Continued Stay: Remain at risks for inpatient hospitalization, Severe depression anxiety, Discharge may exacerbated symptoms Progress Toward Problem(s) and Goals/Treatment Plan: discontinue clonidine protocol continue with neurontin 600mg tid increase mg qhs CBT , motivational and group therapy
[2018-01-01] MEDS ORDERED: Naproxen 500 MG TAB PO PRN (17:38)
[2018-01-02] MEDS: Albuterol 0.083% Inhal Sol (2.5 mg/3 mL) UD INH SCH ×4 (02:30→19:20)
[2018-01-02 08:19] VITALS: BP 128/76
[2018-01-02 09:18] VITALS: PULSE 85; TEMP 97.5
--- NOTE | 2018-01-02 19:27 | PCM.PYCHDC ---
Mental Status Examination - Mental Status Examination Orientation: Person, Place, Situation Memory: Intact Mood: Neutral Affect: Constricted Attention: WNL Concentration: WNL Association: WNL Fund of Knowledge: WNL Formal Thought Process: No Impairment Description of patient's judgement and insight: partial insight , poor judgment Psychotic Thoughts and Behaviors: pt denied psychotic symptoms, non elicited Suicidal Ideation: No Current Homicidal Ideation?: No Discharge Summary - Discharge Note Reason for Hospitalization: 32 yo female w/ h/o Depression, Opiate, Cocaine, Benzo and Alcohol Abuse as per records, not cooperative w/ interview, states that she came to the hospital because her father called the police on her. The patient reports that she feels depressed due to the recent of her mother. She denies drug/alcohol use despite +Utox and records indicating that she has a history of substance abuse. She denies AH/VH/SI/HI and is not currently agreeable to treatment with psychotropic medications. She reports poor sleep and appetite. Psychiatric History (includes Medical, Family, Personal Hx): multiple hospitalizations, non compliant Consultations:: List each consultation separately and include: 1. Reason for request. 2. Findings. 3. Follow-up Summary of Hospital Course include:: 1. Description of specific treatment plan utilized for patients during their course of treatmen. 2. Summarize the time- course for resolution of acute symptoms and/or regressed behaviors. 3. Describe issues identified and worked on during hospitalization. 4. Describe medication utilized. 5. Describe medical problems identified and treated. 6. Reassessment of suicide risk Summary of Hospital Course: pt on admission was started on clonidine protocol and monitored for signs and symptoms of opiate withdrawal, pt was also started on ativan for xanax withdrawal, neurontin 600mg tid pt on second day signed 48 hour notice requesting to be discharged, motivational therapy was provided and pt was advised abiout the risk of relapse on discharge with possible overdose, pt refused to continue with treatment and refused to be referred to inpatient or outpatient [facility] program pt was notified that social human services assistants with be contating DCP&P as she has a 7ys old child under her care to provide support with needed treatment directed towards substance use and to monitor safety of the minoer under her care family meeting was held with father upon pt consent and he was updated wioth treatment patient requested to be discharged against medical advise. pt refused to be referred to [facility] program or inpatient rehab pt on discharge denied any current suicidal or homicidal ideation denied perceptual disturbances, pt was discharged against medical advise - Final Diagnosis (DSM 5) Condition upon Discharge: STABLE DSM 5: substance induced mood disorder bereavement opiate use disorder xanax abuse Disposition: AGAINST MEDICAL ADVICE Follow-up Treatment Plan: discontinue clonidine protocol continue with neurontin 600mg tid increase [id number] mg qhs CBT , motivational and group therapy - Antipsychotic Medications Pt discharged on 2 or more routine antipsychotic medications: No
[2018-01-03] MEDS: Albuterol 0.083% Inhal Sol (2.5 mg/3 mL) UD INH SCH (02:00)
== END 2018-01-02 13:00 | disposition left against medical advice (07) | DRG 894 ==
LOC: H.ER 15:33 → H.ERHOLD 23:28 → H.PSYCH 12-29 00:57
PROVIDERS: ADMIT Psychiatry & Neurology Psychiatry; ATTEND Psychiatry & Neurology Psychiatry
PROC: HZ52ZZZ Individual Psychotherapy for Substance Abuse Treatment, Cognitive-Behavioral (ICD-10-PCS; principal; 2017-12-28)
PROC: HZ56ZZZ Individual Psychotherapy for Substance Abuse Treatment, Psychoeducation (ICD-10-PCS; 2017-12-28)
PROC: HZ57ZZZ Individual Psychotherapy for Substance Abuse Treatment, Motivational Enhancement (ICD-10-PCS; 2017-12-28)
PROC: GZHZZZZ Group Psychotherapy (ICD-10-PCS; 2017-12-28)
DX: F13.14 Sedative, hypnotic or anxiolytic abuse with sedative, hypnotic or anxiolytic-induced mood disorder (principal); F11.94 Opioid use, unspecified with opioid-induced mood disorder; F43.23 Adjustment disorder with mixed anxiety and depressed mood; Z63.4 Disappearance and death of family member; J44.9 Chronic obstructive pulmonary disease, unspecified; G89.29 Other chronic pain; F10.129 Alcohol abuse with intoxication, unspecified; Y90.6 Blood alcohol level of 120-199 mg/100 ml; F17.200 Nicotine dependence, unspecified, uncomplicated; F14.90 Cocaine use, unspecified, uncomplicated

== ENCOUNTER 2018-02-28 18:13 | Emergency (ER) | payer BC, OTHER ==
[2018-02-28 18:14] VITALS: BMI 23.3
[2018-02-28] MEDS ORDERED: Sodium Chloride 0.9% 1,000 ML IV STA (18:44)
--- NOTE | 2018-02-28 18:50 | ED PDOC ---
HPI: General Adult Time Seen by Provider: 02/28/18 18:30 Chief Complaint (Nursing): Lower Extremity Problem/Injury Chief Complaint (Provider): body spasms History Per: Patient History/Exam Limitations: no limitations Onset/Duration Of Symptoms: Days (x1 month), Worse Since (today) Current Symptoms Are (Timing): Still Present Additional Complaint(s): Madie Wilcox is a 32 year old female, with a past medical history of depression, who presents to the emergency department complaining of feeling spasms throughout her body ongoing for a month but more continuous today. Patient reports feeling spasms on the left side of her face, bilateral legs and right hand. Patient also reports feeling like she can't extend her toes and has noticed a crampy pain on bilateral calfs. Patient states symptoms started after taking Abilify and Seroquel for depression. She is currently also taking morphine for management of chronic neck and back pain. She denies any fever, chills, vomiting or diarrhea. No further medical complaints. PMD: None provided. Past Medical History Reviewed: Historical Data, Nursing Documentation, Vital Signs Vital Signs: Last Vital Signs Temp 98.6 F 02/28/18 18:25 Pulse 105 H 02/28/18 18:25 Resp 18 02/28/18 18:25 BP 134/84 02/28/18 18:25 Pulse Ox 97 02/28/18 18:25 - Medical History PMH: Anemia, Anxiety, Asthma, Back Problems, Bipolar Disorder, COPD, Depression, Kidney Stones, Chronic Kidney Disease (kidney stones), Chronic Pain Denies: Diabetes, Hepatitis, HIV, HTN, Seizures, Sexually Transmitted Disease - Surgical History Surgical History: Cholecystectomy - Family History Family History: States: Unknown Family Hx, Hypertension - Immunization History Hx Tetanus Toxoid Vaccination: No Hx Influenza Vaccination: No Hx Pneumococcal Vaccination: No - Home Medications Home Medications: Ambulatory Orders Medication Instructions Recorded Albuterol HFA [Ventolin HFA 90 2 puff IH [id number] PRN 11/05/17 mcg/actuation (8 g)] Meloxicam [Mobic] 7.5 mg PO BID 11/05/17 Tizanidine HCl [Zanaflex] 4 mg PO BID 11/05/17 oxyCODONE [oxyCODONE Immediate 30 mg PO TID 11/05/17 Release Tab] Gabapentin [Neurontin] 600 mg PO TID #90 cap 11/12/17 QUEtiapine [Seroquel] 100 mg PO HS #30 tab 11/12/17 Sertraline [Zoloft] 100 mg PO DAILY #30 tab 11/12/17 traZODone [Desyrel] 50 mg PO HS #30 tab 11/12/17 Albuterol 0.042% [Albuterol 0.042% 1.25 mg INH RQ6 PRN neb 01/02/18 Inhal Bianka (1.25mg/3ml) UD] Albuterol 0.083% [Albuterol 0.083% 2.5 mg INH RQ6 neb 01/02/18 Inhal Bianka (2.5 mg/3 ml) UD] - Allergies Allergies/Adverse Reactions: Allergies Allergy/AdvReac Type Severity Reaction Status Date / Time No Known Allergies Allergy Verified 02/28/18 18:25 Review of Systems ROS Statement: Except As Marked, All Systems Reviewed And Found Negative Constitutional: Negative for: Fever, Chills ENT: Positive for: Other (left sided facial spasms) Gastrointestinal: Negative for: Vomiting, Diarrhea Musculoskeletal: Positive for: Neck Pain (chronic), Back Pain (chronic), Hand Pain (right), Leg Pain (cramps to bilateral calfs) Physical Exam - Reviewed Nursing Documentation Reviewed: Yes Vital Signs Reviewed: Yes - Physical Exam Appears: Positive for: No Acute Distress Head Exam: Positive for: ATRAUMATIC, NORMAL INSPECTION, NORMOCEPHALIC Skin: Positive for: Normal Color, Warm, Dry Eye Exam: Positive for: Normal appearance, EOMI, PERRL Neck: Positive for: Normal, Painless ROM, Supple Cardiovascular/Chest: Positive for: Regular Rate, Rhythm. Negative for: Murmur Respiratory: Positive for: Normal Breath Sounds. Negative for: Respiratory Distress Gastrointestinal/Abdominal: Positive for: Normal Exam, Soft. Negative for: Tenderness, Guarding, Rebound Back: Positive for: Normal Inspection. Negative for: L CVA Tenderness, R CVA Tenderness, Vertebral Tenderness Extremity: Positive for: Normal ROM (upper and lower extremities), Other (Negative Monica's sign bilaterally. Unable to extend toes on left foot). Negative for: Deformity, Swelling Neurologic/Psych: Positive for: Alert, community outreach coordinator II-XII (intact), Oriented (x3), Cerebellar Tests (normal), Gait (steady). Negative for: Motor/Sensory Deficits, Aphasia, Facial Droop - Laboratory Results Result Diagrams: 02/28/18 19:00 02/28/18 19:00 - ECG O2 Sat by Pulse Oximetry: 97 (RA) Pulse Ox Interpretation: Normal - Progress ED Course And Treament: toradol 15 mg iv x 1 dose valium 5 mg po x 1 dose NS 1 liter wide open [facility] reviewed 01/22/2018 alprazolam 0.5 mg quantity 60 01/08/2018 alprazolam 0.25 quant 60 12/05/2017 gabapentin 600mg quant 90 11/12/2017 gabapentin 300mg quant 90 10/26/2017 oxycodone hcl 30mg #42 10/26/2017 alprazalom 1 mg #42 10/20/2017 oxycodone hcl 30mg #21 10/20/2017 alprazolam 1 mg #21 10/17/2017 gabapentin 300mg #90 10/04/2017 oxycodone 30mg quant#30 10/04/2017 alprazolam 1mg #42 09/20/2017 oxycodone 30mg #[address] Juárez. Will also evaluate TSH Medical Decision Making Medical Decision Making: Time: 18:30 Initial Impression: Muscle spasms Initial Plan: --Alcohol serum --CMP --CPK --Magnesium --Phosphorus --Drug screen, urine --Urine --CBC w/ differential --Valium 5 mg PO --Toradol 15 mg IVP --Sodium Chloride 1,000 ml IV 500 mls/hr --Reevaluation Scribe Attestation: Documented by Prem Conn, acting as a scribe for Luis Alberto Redman PA-C. Provider Scribe Attestation: All medical record entries made by the Scribe were at my direction and personally dictated by me. I have reviewed the chart and agree that the record accurately reflects my personal performance of the history, physical exam, medic al decision making, and the department course for this patient. I have also personally directed, reviewed, and agree with the discharge instructions and disposition. Disposition - Clinical Impression Clinical Impression: Muscle spasm - Patient ED Disposition Is Patient to be Admitted: Transfer of Care - Disposition Disposition: Transfer of Care Disposition Time: 20:00 Condition: FAIR Instructions: Muscle Spasms (DC) Patient Signed Over To: Milagros Nath Handoff Comments: pending bloodwork/re-eval
[2018-02-28 19:09] LABS: BASO # 0.1 K/uL (0.0-0.2); EOS # 0.2 K/uL (0.0-0.7); EOS % 2.6 % (0.0-4.0); HEMOGLOBIN 13.3 g/dL (12.0-16.0); LYMPH # 1.5 K/uL (1.0-4.3); LYMPH % 16.4 % (20.0-40.0); MEAN CELL VOLUME 92.7 fl (81.0-99.0); MEAN CORPUSCULAR HEMOGLOBIN 31.1 pg (27.0-31.0); MEAN CORPUSCULAR HGB CONC 33.6 g/dL (33.0-37.0); MONO # 0.6 K/uL (0.0-0.8); MONO % 6.5 % (0.0-10.0); NEUT # 6.9 K/uL (1.8-7.0); NEUT % 73.5 % (50.0-75.0); RBC 4.26 Mil/uL (3.80-5.20); WHITE BLOOD COUNT 9.4 K/uL (4.8-10.8)
[2018-02-28 19:32] LABS: ALB/GLOB RATIO 1.2 (1.0-2.1); ALBUMIN 4.5 g/dL (3.5-5.0); ALT/SGPT 23 U/L (9-52); AST/SGOT 33 U/L (14-36); BLOOD UREA NITROGEN 9 mg/dl (7-17); CALCIUM 9.1 mg/dL (8.4-10.2); GFR NON-AFRICAN AMERICAN > 60
[2018-02-28 19:45] LABS: BARBITURATES, UR NEGATIVE (NEGATIVE); BENZODIAZEPINES, UR POSITIVE (NEGATIVE); OPIATES, UR POSITIVE (NEGATIVE); PHENCYCLIDINE, UR NEGATIVE (NEGATIVE)
[2018-02-28 21:19] LABS: T3 1.17 nmol/L (1.49-2.60); T4 8.12 ug/dl (5.5-11.0)
--- NOTE | 2018-02-28 21:40 | ED PDOC ---
- Laboratory Results Result Diagrams: 02/28/18 19:00 02/28/18 19:00 - ECG O2 Sat by Pulse Oximetry: 97 (RA) Pulse Ox Interpretation: Normal Medical Decision Making Medical Decision Making: Reviewed thyroid function. Discussed disposition with Dr. Juárez. Disposition - Clinical Impression Clinical Impression: Muscle spasm - POA Present On Arrival: None - Disposition Disposition: Routine/Home Disposition Time: 21:34 Condition: GOOD Additional Instructions: Please follow-up with PMD. Instructions: Muscle Spasms (DC)
[2018-02-28 22:15] VITALS: BP 124/71; PULSE 73; RESP 15; TEMP 98.1; O2SAT 100
== END 2018-02-28 22:15 | disposition home or self-care (01) ==
LOC: H.ER 18:13
DX: M62.838 Other muscle spasm (principal); Z86.59 Personal history of other mental and behavioral disorders; G89.29 Other chronic pain; M54.2 Cervicalgia; J44.9 Chronic obstructive pulmonary disease, unspecified; N18.9 Chronic kidney disease, unspecified; Z87.442 Personal history of urinary calculi
CPT/HCPCS: 80053; 81025; 82550; 83735; 84100; 84436; 84443; 84480; 85025; 96374; 99284; G0480; J1885; J7030

== ENCOUNTER 2018-03-12 10:23 | Emergency (ER) | payer BC, OTHER ==
[2018-03-12 10:23] VITALS: BMI 23.3
--- NOTE | 2018-03-12 11:07 | ED PDOC ---
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 States on pain management via Dr Srinivasan with ocycodone, zanaflex, gabapentin and xanax daily, denies missing or changing dose. Recently started Abilify for depression after mother , believes symptoms could be related to starting that medication. Denies suicidal thoughts, weakness, numbness, headache or fever. Denies IVDU. Past Medical History Reviewed: Historical Data, Nursing Documentation, Vital Signs Vital Signs: Last Vital Signs Temp 98.3 F 03/12/18 10:27 Pulse 89 03/12/18 10:27 Resp 18 03/12/18 10:27 BP 120/79 03/12/18 10:27 Pulse Ox 100 03/12/18 10:27 - Medical History PMH: Anemia, Anxiety, Asthma, Back Problems, Bipolar Disorder, COPD, Depression, Kidney Stones, Chronic Kidney Disease (kidney stones), Chronic Pain Denies: Diabetes, Hepatitis, HIV, HTN, Seizures, Sexually Transmitted Disease - Surgical History Surgical History: Cholecystectomy - Family History Family History: States: Unknown Family Hx, Hypertension - Immunization History Hx Tetanus Toxoid Vaccination: No Hx Influenza Vaccination: No Hx Pneumococcal Vaccination: No - Home Medications Home Medications: Ambulatory Orders Medication Instructions Recorded RX: Albuterol HFA [Ventolin HFA 90 2 puff IH [id number] PRN 11/05/17 mcg/actuation (8 g)] RX: Meloxicam [Mobic] 7.5 mg PO BID 11/05/17 RX: Tizanidine HCl [Zanaflex] 4 mg PO BID 11/05/17 RX: oxyCODONE [oxyCODONE Immediate 30 mg PO TID 11/05/17 Release Tab] RX: Gabapentin [Neurontin] 600 mg PO TID #90 cap 11/12/17 RX: QUEtiapine [Seroquel] 100 mg PO HS #30 tab 11/12/17 RX: Sertraline [Zoloft] 100 mg PO DAILY #30 tab 11/12/17 RX: traZODone [Desyrel] 50 mg PO HS #30 tab 11/12/17 RX: Albuterol 0.042% [Albuterol 1.25 mg INH RQ6 PRN neb 01/02/18 0.042% Inhal Bianka (1.25mg/3ml) UD] RX: Albuterol 0.083% [Albuterol 2.5 mg INH RQ6 neb 01/02/18 0.083% Inhal Bianka (2.5 mg/3 ml) UD] - Allergies Allergies/Adverse Reactions: Allergies Allergy/AdvReac Type Severity Reaction Status Date / Time No Known Allergies Allergy Verified 02/28/18 18:25 Review of Systems ROS Statement: Except As Marked, All Systems Reviewed And Found Negative Constitutional: Negative for: Fever Respiratory: Negative for: Cough, Shortness of Breath Gastrointestinal: Negative for: Abdominal Pain Genitourinary Female: Negative for: Dysuria Musculoskeletal: Positive for: Neck Pain, Shoulder Pain, Back Pain, Other (muscle spasms). Negative for: Leg Pain, Foot Pain Skin: Negative for: Rash, Lesions Neurological: Negative for: Weakness, Numbness, Incoordination, Change in Spee ch, Headache, Dizziness Psych: Positive for: Depression. Negative for: Suicidal ideation Physical Exam - Reviewed Nursing Documentation Reviewed: Yes Vital Signs Reviewed: Yes - Physical Exam Appears: Positive for: Well, Non-toxic, No Acute Distress Head Exam: Positive for: ATRAUMATIC, NORMAL INSPECTION, NORMOCEPHALIC Skin: Positive for: Normal Color, Warm, DRY Eye Exam: Positive for: EOMI, Normal appearance, PERRL ENT: Positive for: Normal ENT Inspection Neck: Positive for: Normal, Painless ROM Cardiovascular/Chest: Positive for: Regular Rate, Rhythm Respiratory: Positive for: CNT, Normal Breath Sounds Gastrointestinal/Abdominal: Positive for: Normal Exam, Soft Back: Positive for: Decreased ROM, Muscle Spasm (cervical/thoracis, less lumbar) Extremity: Positive for: Normal ROM Neurologic/Psych: Positive for: Alert, Oriented, Motor/Sensory Deficits (upper ext strength 5/5, gait stable, sensation grossly intact) - ECG O2 Sat by Pulse Oximetry: 100 Medical Decision Making Medical Decision Making: prior chart reviewed from 02/28 w bloodwork obtained unremarkable Improved in ED w muscle relaxant and nonopioid medication [place] better and wished to go home. Explained need for followup and indications for return to ER. Was neurologically intact on discharge. Disposition - Clinical Impression Clinical Impression: Spasm of back muscles - Patient ED Disposition Is Patient to be Admitted: No - Disposition Disposition: Routine/Home Disposition Time: 13:45 Condition: STABLE Additional Instructions: Return to ER for any worse or new symptoms. Take medications as prior prescribed. Instructions: Muscle Spasms (DC) Forms: [employer] ([place])
[2018-03-12 13:41] VITALS: BP 128/78; RESP 19
[2018-03-12 14:25] VITALS: PULSE 78; TEMP 97.5
[2018-03-20 12:15] VITALS: O2SAT 100
== END 2018-03-12 14:25 | disposition home or self-care (01) ==
LOC: H.ER 10:23
DX: M62.830 Muscle spasm of back (principal); Z86.59 Personal history of other mental and behavioral disorders; G89.29 Other chronic pain; J44.9 Chronic obstructive pulmonary disease, unspecified; N18.9 Chronic kidney disease, unspecified; Z87.442 Personal history of urinary calculi
CPT/HCPCS: 81025; 96372; 99283; J1885